=== PATIENT | male | born 1955 | race Caucasian/White ===

== ENCOUNTER 2017-02-04 23:50 | Inpatient (IN) | payer OTHER ==
[~2017-02-04] VITALS: Ht 180.3 cm; Wt 80.5 kg
--- NOTE | ~2017-02-04 | 2DMMODE ---
[facility] [address] [place] [address] 2 D/M-MODE ECHOCARDIOGRAM Name: HOODWM Room #: 204-P [facility] IN .R.#: [id number] Admission: 02/05/17 Attend Phys: Yanet River Discharge: Date of : 59 Date of Service: 02/05/17 1511 Report #: [id number] THIS REPORT FOR: //name// APPROVED REPORT Study performed: 02/05/2017 13:59:52 EXAM: Comprehensive 2D, Doppler, and color-flow Echocardiogram Patient Location: Bedside Room #: 204 Status: routine BSA: 2.00 HR: 79 bpm BP: 131/91 mmHg Rhythm: NSR Other Information Study Quality: Adequate Indications Chest Pain Hx: CAD, stent, HTN, HPL, Pre-OP possible CABG 2D Dimensions RVDd: 37.46 mm LVEF(%): 49.36 (>50%) IVSd: 11.88 (7-11mm) LVOT Diam: 23.42 (18-24mm) LVDd: 38.68 mm PWd: 12.46 (7-11mm) Ascending Ao: 37.96 (22-36mm) LVDs: 29.19 (25-40mm) Aortic Root: 39.21 mm IVC: 11.00 mm Delvalle's LVEF: 49.36 % Volumes Left Atrial Volume (Systole) Single Plane 4CH: 39.54 mL Single Plane 2CH: 31.74 mL LA ESV Index: 20.00 mL/m2 Aortic Valve AoV Peak Quincy.: 0.90 m/s AO Peak Gr.: 3.26 mmHg LVOT Max P.17 mmHg LVOT Max V: 0.74 m/s MEGHAN Vmax: 3.51 cm2 Mitral Valve E/A Ratio: 0.8 [facility] [address] 2 D/M-MODE ECHOCARDIOGRAM Name: WM HOOD Room #: 204-P [facility] IN M.R.#: [id number] Admission: 02/05/17 Attend Phys: Yanet River Discharge: Date of : 59 Date of Service: 02/05/17 1511 Report #: [id number] MV Decel. Time: 175.61 ms MV E Max Quincy.: 0.57 m/s MV A Quincy.: 0.71 m/s MV PHT: 50.93 ms IVRT: 50.75 ms Pulmonary Vein P Vein S: 0.38 m/s P Vein A: 0.39 m/s P Vein D: 0.30 m/s P Vein A Dur.: 73.8 msec P Vein S/D Ratio: 1.27 Tricuspid Valve TR Peak Quincy.: 2.77 m/s RAP Estimate: 5.00 mmHg TR Peak Gr.: 30.77 mmHg PA Pressure: 36.00 mmHg Left Ventricle Left ventricle is grossly normal size. Mild concentric left ventricular hypertrophy. Left ventricular systolic function is normal. LVEF is 55-60%. Grade I - abnormal relaxation pattern. Right Ventricle The right ventricle is normal size. The right ventricular systolic function is normal. Atria The left atrium size is normal. The right atrium size is normal. Aortic Valve The aortic valve is normal in structure. No aortic regurgitation is present. There is no aortic valvular stenosis. Mitral Valve The mitral valve is normal in structure. There is no mitral valve regurgitation noted. No evidence of mitral valve stenosis. Tricuspid Valve The tricuspid valve is normal in structure. There is trace tricuspid regurgitation. The right atrial pressure is estimated at 5 mmHg. There is mild pulmonary hypertension estimated PAP 36mmHg. Pulmonic Valve The pulmonary valve is normal in structure. There is no pulmonic valvular regurgitation. [facility] [address] [place] [address] 2 D/M-MODE ECHOCARDIOGRAM Name: WM HOOD Room #: 204-P [facility] IN [facility].#: [id number] Admission: 02/05/17 Attend Phys: Yanet River Discharge: Date of : 59 Date of Service: 02/05/17 1511 Report #: [id number] Great Vessels Aortic root is mildly dilated. IVC is normal in size and collapses >50% with inspiration. Pericardium There is no pericardial effusion. <Conclusion> Left ventricle is grossly normal size. Mild concentric left ventricular hypertrophy. Left ventricular systolic function is normal. The right ventricle is normal size. The aortic valve is normal in structure. There is no mitral valve regurgitation noted. There is trace tricuspid regurgitation. The right atrial pressure is estimated at 5 mmHg. There is mild pulmonary hypertension estimated PAP 36mmHg. <ELECTRONICALLY SIGNED> By: Chas Alvarado MD 02/05/17 [phone] Chas Alvarado MD /INF
--- NOTE | ~2017-02-04 | CATHLAB ---
[facility] [address] [place] [address] INVASIVE PROCEDURE REPORT Name: WM HOOD Room #: 204-P ADM IN .R.#: [id number] Admission: 02/05/17 Attend Phys: Yanet River Discharge: Date of : 59 Date of Service: 02/05/17 1358 Report #: [id number] THIS REPORT FOR: //name// APPROVED REPORT Patient Details Patient Status: In-Patient Room #: The patient is a 61 year-old male Event Personnel Chas Alvarado Line Assembler, Paul Mario RN, Prince Carey Monitor, Savannah Vivar Monitor, Shirley Redd Scrub Procedures Performed Art Access - R femoral artery* 53037 Initial Mod Sed Same Phys/QHP Gr5y [id number] Left Heart Cath w/or w/o Coronaries [id number] [facility] Hemostasis with Manual pressure Indication Unstable angina Risk Factors Hypercholesterolemia, Coronary Artery DiseaseHypertension, Tobacco History () Previous Procedures/Diagnoses Previous PCI Procedure Narrative The patient was brought urgently to the Cardiac Catheterization Laboratory and was prepped and draped in a sterile manner. The Right Groin^ was infiltrated with 1% Lidocaine subcutaneous anesthesia. A PINNACLE 4FR Sheath #[id number] sheath was inserted into the RFA^. Coronary angiography was performed using coronary diagnostic catheters. The right coronary system was accessed and visualized with a JR 4 catheter. The left coronary system was accessed and visualized with a JL 4 catheter. The left ventricle was accessed and visualized with a Pigtail catheter. Left ventricular/Aortic Valve gradient assessed via catheter pullback. Left ventriculogram was performed in 30 degree projection. Hemostasis was obtained with manual pressure following sheath removal without any complications. The patient tolerated the procedure well and there were no complications associated with the procedure. There was no hematoma. [facility] [address] [place] [address] INVASIVE PROCEDURE REPORT Name: HOODWM Room #: 204-P [facility] IN M.R.#: [id number] Admission: 02/05/17 Attend Phys: Yanet River Discharge: Date of : 59 Date of Service: 02/05/17 1358 Report #: [id number] Intraoperative Conscious Sedation Sedation start time: 12:14 Case end Time: 12:31 Fentanyl 50.0 mcg Versed 1.0 mg Fluoro Time: 2.16 minutes Dose: DAP 3761.20 cGycm2 520 mGy Contrast Type and Amount: Omnipaque 135 ml Coronary Angiography The patient's coronary anatomy is right dominant. Diagnostic Cath Left Main Large-caliber vessel with a 60% stenosis in the distal segment, just before the bifurcation. LAD Moderate disease at the ostium. 50-60% stenosis in the proximal segment. Diagonal 1 No flow-limiting lesions. OM1 Moderate size caliber vessel, 70% stenosis in the proximal segment. Right Coronary Dominant vessel with a severe, eccentric stenosis at the proximal segment, 70%. R PDA Mild disease at the ostium. Left Ventriculography The left ventricle is normal in size with normal contractility. The left ventricular ejection fraction is estimated to be 55-60%. Hemodynamics The aortic pressure is 140/97 mmHg with a mean of 109 mmHg. The left ventricular pressure is 129/8 mmHg with a mean of mmHg. The left ventricular end diastolic pressure is 20 mmHg. Conclusion 1. Severe left main and multivessel disease. 2. Normal LV systolic function. 3. Recommend CV surgery consultation. Recommendations CABG <ELECTRONICALLY SIGNED> By: Chas Alvarado MD 02/05/17 1358 [id number] [id number] Chas Alvarado MD /INF
--- NOTE | ~2017-02-04 | EKG ---
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1955 Requested By: Bushra Yung Order Number: [id number] MD: Marquise Booker Measurements Intervals [place] Rate: 117 P: 68 [place]: 157 QRS: 62 QRSD: 76 T: 34 QT: 296 QTc: 413 Interpretive Statements Sinus tachycardia Otherwise no significant abnormality Compared to ECG 06/20/2007 12:14:49 Sinus tachycardia is now present Electronically Signed On 02-05-2017 8:28:18 CDT by Marquise Booker [email or web address] <ELECTRONICALLY SIGNED> By: Marquise Booker MD, [facility] 02/05/17 0828 0004 [id number] Marquise Booker MD, FAC /EPI
[~2017-02-04 23:50] MED LIST: CRUTCHES MISCELL; CYMBALTA; IBUPROFEN 800800 M1 PO; KEFLEX250 MG PO; LOPRESSOR; LORTAB 5 MG/5001 TA1 PO; NORCO 5-325 TA1 EACH PO; PERCOCET 5-3251 EACH PO; SIMVASTATIN10 MG PO
[2017-02-04 23:53] VITALS: BP 189/137
[2017-02-05 00:18] LABS: ABSOLUTE NEUTROPHILS 9.5 thou/uL (1.4-8.2); BASOPHILS 0.6 % (0.0-2.0); HEMATOCRIT 51.3 % (42.0-52.0); HEMOGLOBIN 17.9 gm/dL (14.0-18.0); LYMPHOCYTES 19.5 % (24.0-44.0); MCH 32.5 pg (26.0-34.0); MCHC 34.9 g/dL (28.0-37.0); MCV 93.1 fL (80.0-100.0); MONOCYTES 8.2 % (1.0-8.0); PLATELET COUNT 303 thou/uL (150-400); POLYS 69.7 % (36.0-66.0); RBC 5.51 mil/uL (4.50-6.00); RDW 13.3 % (10.5-14.5); WBC 13.7 thou/uL (4.0-11.0)
[2017-02-05 00:19] LABS: MANUAL DIFF NO
[2017-02-05 00:22] LABS: ANION GAP 12 mmol/L (7-16); BUN 17 mg/dL (7-18); CALCIUM 9.7 mg/dL (8.5-10.1); CHLORIDE 101 mmol/L (98-107); CO2 25 mmol/L (21-32); CREATININE 0.9 mg/dL (0.7-1.3); GLUCOSE 118 mg/dL (74-106); POTASSIUM 4.5 mmol/L (3.5-5.1); SODIUM 138 mmol/L (136-145)
[2017-02-05 00:30] LABS: APTT 29.7 Seconds (24.5-32.8); PROTIME 9.6 Seconds (9.3-11.4)
[2017-02-05 00:31] LABS: TROPONIN-I < 0.04 ng/mL (<0.04-0.07)
[2017-02-05 01:53] VITALS: BP 138/94
[2017-02-05 02:00] VITALS: BP 148/101
[2017-02-05 04:15] VITALS: BP 144/98
[2017-02-05 04:25] LABS: AMP/METHAMP Negative (Negative); BARBITURATES Negative (Negative); BENZODIAZEPINES Negative (Negative); COCAINE Negative (Negative); METHADONE Negative (Negative); OPIATES POSITIVE (Negative); PCP Negative (Negative); THC Negative (Negative)
[2017-02-05 07:20] LABS: CHOLESTEROL 232 mg/dL (<200); HDL CHOLESTEROL 54 mg/dL (>40); LDL CHOLESTEROL 127 mg/dL (<100); TC:HDL 4.3 Ratio (Not establshd); TRIGLYCERIDE 257 mg/dL (<150); TROPONIN-I < 0.04 ng/mL (<0.04-0.07); VLDL 51 mg/dL (<40)
[2017-02-05 07:50] VITALS: BP 131/91
[2017-02-05 15:40] VITALS: BP 150/90
[2017-02-05 16:02] VITALS: BP 131/91
== END 2017-02-05 20:45 | disposition left against medical advice (07) | DRG 287 ==
LOC: ER 23:50 → EROBS 02-05 00:55 → 2N 02-05 01:39
PROVIDERS: Emergency Medicine; Nurse Practitioner Family
PROC: B2111ZZ Fluoroscopy of Multiple Coronary Arteries using Low Osmolar Contrast (ICD-10-PCS; principal; 2017-02-05)
PROC: B2151ZZ Fluoroscopy of Left Heart using Low Osmolar Contrast (ICD-10-PCS; principal; 2017-02-05)
PROC: 4A023N7 Measurement of Cardiac Sampling and Pressure, Left Heart, Percutaneous Approach (ICD-10-PCS; principal; 2017-02-05)
DX: I25.110 Atherosclerotic heart disease of native coronary artery with unstable angina pectoris (principal); I24.9 Acute ischemic heart disease, unspecified; I16.1 Hypertensive emergency; I10 Essential (primary) hypertension; F32.9 Major depressive disorder, single episode, unspecified; E78.00 Pure hypercholesterolemia, unspecified; E78.5 Hyperlipidemia, unspecified; F17.210 Nicotine dependence, cigarettes, uncomplicated; E03.9 Hypothyroidism, unspecified; T43.625A Adverse effect of amphetamines, initial encounter; Z95.5 Presence of coronary angioplasty implant and graft; Z91.14 Patient's other noncompliance with medication regimen; Z82.49 Family history of ischemic heart disease and other diseases of the circulatory system; Z79.82 Long term (current) use of aspirin; Z79.899 Other long term (current) drug therapy
CPT/HCPCS: 10081

== ENCOUNTER 2020-12-22 12:39 | Inpatient (IN) | payer OTHER ==
[~2020-12-22] VITALS: Ht 177.8 cm; Wt 78.0 kg
[2020-12-22 12:43] VITALS: BP 115/80
[2020-12-22] MEDS ORDERED: NOHOMEMEDICATIONS (12:57)
[2020-12-22 13:17] LABS: ABSOLUTE NEUTROPHILS 5.2 thou/uL (1.4-8.2); BASOPHILS 0.2 % (0.0-2.0); HEMATOCRIT 46.4 % (42.0-52.0); HEMOGLOBIN 16.1 gm/dL (14.0-18.0); MCHC 34.6 g/dL (28.0-37.0); MCV 89.7 fL (80.0-100.0); MONOCYTES 14.2 % (1.0-8.0); PLATELET COUNT 236 thou/uL (150-400); POLYS 76.6 % (36.0-66.0); RBC 5.18 mil/uL (4.50-6.00); RDW 13.4 % (10.5-14.5); WBC 6.8 thou/uL (4.0-11.0)
[2020-12-22 13:25] LABS: ANION GAP 14 mmol/L (7-16); BUN 41 mg/dL (7-18); CALCIUM 8.3 mg/dL (8.5-10.1); CHLORIDE 101 mmol/L (98-107); CO2 18 mmol/L (21-32); CREATININE 1.5 mg/dL (0.7-1.3); GLUCOSE 101 mg/dL (74-106); POTASSIUM 4.2 mmol/L (3.5-5.1); SODIUM 133 mmol/L (136-145)
[2020-12-22 13:34] LABS: ALBUMIN 2.3 g/dL (3.4-5.0); SGPT 40 U/L (16-63); TOTAL BILIRUBIN 0.6 mg/dL (0.2-1.0); TOTAL PROTEIN 6.6 g/dL (6.4-8.2); TROPONIN-I <0.06 ng/mL (<0.06)
[2020-12-22 13:54] LABS: BE(vivo) -4.9 mmol/L (-2 to +3); HCO3 17.8 mmol/L (22.0-26.0); PCO2 VENOUS 27.8 mmHg (41.0-51.0); PO2 VENOUS 39.8 mmHg (35.0-45.0)
[2020-12-22 14:13] LABS: SGOT 72 U/L (15-37)
--- NOTE | 2020-12-22 17:32 | NUR ---
65 year old male presenting to the ED with the complaints of Shortness of Air. Pt complains of 7 days of myalgias, subjective fever, nonproductive cough, SOB, and diarrhea. Symptoms worsened today. Pt says he used to smoke meth but has not in the past few weeks. Noted in ED Covid positive per ID NOW testing. Currently patient on 4 liter per NC and pulmonology has been consulted. Per ED triage assessment reports no vaccination. Per ED general assessment noted that patient is A&O times 4. Once medical team has assessed treatment plan CM will assist with discharge needs as needed.
[2020-12-22 19:52] VITALS: BP 120/80
--- NOTE | 2020-12-22 19:53 | NUR ---
ATTEMPTED TO CALL REPORT AT THIS TIME
--- NOTE | 2020-12-22 20:13 | NUR ---
SECOND ATTEMPT MADE TO CALL REPORT
[2020-12-22 20:23] VITALS: BP 106/75
[2020-12-22 21:12] VITALS: BP 120/80
[2020-12-23 02:50] LABS: ABSOLUTE NEUTROPHILS 2.3 thou/uL (1.4-8.2); BASOPHILS 0.5 % (0.0-2.0); HEMATOCRIT 42.6 % (42.0-52.0); HEMOGLOBIN 15.3 gm/dL (14.0-18.0); LYMPHOCYTES 10.5 % (24.0-44.0); MCH 31.5 pg (26.0-34.0); MCHC 35.9 g/dL (28.0-37.0); MCV 87.9 fL (80.0-100.0); MONOCYTES 9.2 % (1.0-8.0); PLATELET COUNT 254 thou/uL (150-400); POLYS 79.8 % (36.0-66.0); RBC 4.85 mil/uL (4.50-6.00); RDW 13.5 % (10.5-14.5); WBC 2.9 thou/uL (4.0-11.0)
[2020-12-23 03:05] LABS: D-DIMER 0.94 ug/mLFEU (0.19-0.50); INR 1.07; PROTIME 11.6 Seconds (10.5-12.1)
[2020-12-23 03:12] LABS: ALBUMIN 2.2 g/dL (3.4-5.0); CREATININE 1.3 mg/dL (0.7-1.3); POTASSIUM 3.9 mmol/L (3.5-5.1); TOTAL BILIRUBIN 0.4 mg/dL (0.2-1.0)
--- NOTE | 2020-12-23 03:32 | NUR ---
PT ARRIVED FROM ER VIA WHEELCHAIR. PT A/OX4, AND UP WITH SBA. COVID+, REMDESIVIR STARTED AND IVF GTT. ISOLATION PRECAUTIONS IN PLACE.
[2020-12-23 03:44] VITALS: BP 102/69
[2020-12-23 06:37] LABS: ALBUMIN 2.3 g/dL (3.4-5.0); CALCIUM 8.2 mg/dL (8.5-10.1); CREATININE 1.3 mg/dL (0.7-1.3); DIRECT BILIRUBIN 0.2 mg/dL (<0.1-0.2); PHOSPHORUS 4.4 mg/dL (2.5-4.9); POTASSIUM 4.1 mmol/L (3.5-5.1); TOTAL BILIRUBIN 0.5 mg/dL (0.2-1.0); TOTAL PROTEIN 6.4 g/dL (6.4-8.2)
[2020-12-23 07:34] VITALS: BP 113/78
--- NOTE | 2020-12-23 09:45 | EKG ---
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 : 1955 Requested By: Sharon Honeycutt Order Number: [id number] MD: Marquise Booker Measurements Intervals [place] Rate: 104 P: 74 MT: 129 QRS: 61 QRSD: 85 T: 50 QT: 327 QTc: 430 Interpretive Statements Sinus tachycardia Otherwise no significant abnormality Compared to ECG 02/05/2017 00:04:49 No significant changes Electronically Signed On 12-23-2020 9:45:06 CDT by Marquise Booker [email or web address] <ELECTRONICALLY SIGNED> By: Marquise Booker MD, [facility] 12/23/20 0945 1252 [id number] Marquise Booker MD, FACC /EPI
[2020-12-23 11:29] LABS: URINE BILIRUBIN NEGATIVE (Negative); URINE BLOOD NEGATIVE (Negative); URINE CLARITY CLEAR; URINE COLOR YELLOW; URINE GLUCOSE-RANDOM* NEGATIVE (Negative); URINE KETONES TRACE (Negative); URINE LEUKOCYTES-REFLEX NEGATIVE (Negative); URINE NITRITE-REFLEX NEGATIVE (Negative); URINE PROTEIN (DIPSTICK) NEGATIVE (Negative); URINE SPECIFIC GRAVITY 1.025 (1.005-1.035)
[2020-12-23 11:38] LABS: AMP/METHAMP Negative (Negative); BARBITURATES Negative (Negative); BENZODIAZEPINES Negative (Negative); COCAINE Negative (Negative); METHADONE Negative (Negative); OPIATES Negative (Negative); PCP Negative (Negative)
--- NOTE | 2020-12-23 16:01 | NUR ---
Patient admits with SOA. Patient Covid positive and has not had vaccine. Patient not answering phone in room. Sp with unit who reports patient is "refusing all calls." casemgt following.
[2020-12-23 16:53] VITALS: BP 124/84
--- NOTE | 2020-12-23 16:57 | NUR ---
PATIENT HAS REPEATEDLY REFUSED TO ALLOW THIS RN TO RESEARCH LABORATORY MANAGER PATIENT'S IV FLUIDS AND DOES NOT WANT ANY PHONE CALLS ATT. PATIENT REPORTS "I JUST WANT TO SLEEP, LEAVE ME ALONE." PATIENT HAS BEEN SLEEPING ALL SHIFT EXCEPT FOR THERAPY AND MEDICATION. PATIENT ALSO REQUESTED TO SKIP LUNCH SAYING "JUST LET ME SLEEP."
[2020-12-23 19:54] VITALS: BP 129/84
[2020-12-24 01:06] LABS: HEP B SURFACE Ab(ANTI-HBS Non Reactive (()); HEPATITIS C VIRUS AB <0.1 (0.0-0.9)
[2020-12-24 03:06] LABS: HIV ANTIBODY Non Reactive (Non Reactive)
[2020-12-24 05:54] VITALS: BP 110/77
--- NOTE | 2020-12-24 06:06 | NUR ---
PROGRESS PT MOSTLY COOPERATIVE, GETTING ANGRY THE IV PUMP KEEPS ALARMING AND EVERY ATTEMPT TO KEEP FLUIDS GOING AND IV FROM ALARMING SUCH FREQUENT ROUNDING, WRAPPING ARM DECREASING RATE PT VERY IRATE THIS AM AND INSISTED THAT I TURN IT OFF SO HE COULD SLEEP. ORDER TO DC TELEMETRY OBTAINED PT RUNNING SR IN THE 80'S ELECTRODES WOULD NOT STAY ON WITH PT'S CHEST HAIR AND HIM BEING RESTLESS IN BED. VOIDING QS PER TOLIET. VSS ON ROOM AIR LUNGS WITH RHONCHI NOTED IN UPPER LOBES AND DIMINISHED IN THE BASES. REMDESIVIR ADMINISTERED ORDERED WITH FLUSH AFTER PER PROTOCOL. IVF'S INFUSED AT A RATE OF 50CC/HR UNTIL 5 AM WHEN PT DEMANDED I SHUT OFF THE ALARM BEFORE HE PULLED HIS IV.
[2020-12-24 07:28] VITALS: BP 127/92
[2020-12-24 09:10] LABS: HEMATOCRIT 41.6 % (42.0-52.0); HEMOGLOBIN 14.4 gm/dL (14.0-18.0); MCH 30.9 pg (26.0-34.0); MCHC 34.5 g/dL (28.0-37.0); MCV 89.4 fL (80.0-100.0); RBC 4.66 mil/uL (4.50-6.00); RDW 13.6 % (10.5-14.5); WBC 8.1 thou/uL (4.0-11.0)
[2020-12-24 09:24] LABS: PLATELET COUNT 379 thou/uL (150-400)
[2020-12-24 09:31] LABS: ALBUMIN 2.2 g/dL (3.4-5.0); CALCIUM 8.1 mg/dL (8.5-10.1); CREATININE 1.1 mg/dL (0.7-1.3); DIRECT BILIRUBIN 0.1 mg/dL (<0.1-0.2); MAGNESIUM 2.2 mg/dL (1.8-2.4); PHOSPHORUS 2.7 mg/dL (2.6-4.7); TOTAL BILIRUBIN 0.4 mg/dL (0.2-1.0); TOTAL PROTEIN 5.9 g/dL (6.4-8.2)
[2020-12-24 09:58] LABS: ABSOLUTE NEUTROPHILS 6.8 thou/uL (1.4-8.2); PLATELET ESTIMATE NORMAL
[2020-12-24 15:33] VITALS: BP 118/77
--- NOTE | 2020-12-24 16:53 | NUR ---
PT NOT VERY COMPLIANT, DOES NOT WANT TO BE HOOKED UP TO IV, STATES IT IS AN "ORGAN, IT NEVER SHUTS OFF." EDUCATED PT ON HOW LINE GETS OVERPRESSURE WHEN HE BENDS ARM. ALSO STATES NO ONE IS TELLING HIM ANYTHING ABOUT HIS CONDITION. I WAS IN THE ROOM WITH DR. ROGERS HE EXPLAINED EVERYTHING TO HIM. VERY IMPULSIVE AND FIDGITS. PT NOW ON ROOM AIR.
[2020-12-24 19:40] VITALS: BP 138/86
[2020-12-25 05:50] VITALS: BP 126/77
[2020-12-25 06:28] LABS: ALBUMIN 2.3 g/dL (3.4-5.0); CALCIUM 7.8 mg/dL (8.5-10.1); DIRECT BILIRUBIN 0.1 mg/dL (<0.1-0.2); PHOSPHORUS 2.5 mg/dL (2.5-4.9); POTASSIUM 4.4 mmol/L (3.5-5.1); TOTAL BILIRUBIN 0.4 mg/dL (0.2-1.0)
[2020-12-25 07:17] VITALS: BP 94/67
--- NOTE | 2020-12-25 07:47 | NUR ---
PT MAKING SLOW PROGRESS TOWARESD GOALS. LUNGS DIMINISHED THROUGHOUT. O2 SATS MID-LOW 90'S. PT DENIED NEED FOR OXYGEN. PT DEMANDING TO BE LEFT ALONE AND TO BE TOLD HOW LONG HE HAS TO STAY HERE. "NO ONE IS TELLING ME HOW LONG I HAVE TO STAY HERE." ENCOURAGED TO ASK THE PHYSICIAN.
[2020-12-25 15:18] VITALS: BP 106/78
--- NOTE | 2020-12-25 18:20 | NUR ---
ASSUMED PATIENT CARE AT 0700. A/0 X4. ON RA. UP AD BUD. PROGRESSING TOWARDS POC GOALS.
[2020-12-25 19:37] VITALS: BP 153/91
--- NOTE | 2020-12-26 04:05 | NUR ---
ASSUME CARE 1900. PT/VITALS STABLE. DINTEERMITTENT GENERALIZED PAIN WITH RELIEF FROM TYLENOL. GOOD TOLERANCE TO ACTIVITY. A/O X 4. ASSESSMETN CHARTED. PROGRESSING WELL TOWARDS POC. PLAN IS TO CONTINUE WITH REMDESEVIER THERAPY AND MONITOR RESPIRATORY FUNCTION. WILL CONTINUE TO MONITOR AND FOLLOW WITH POC
[2020-12-26 04:09] VITALS: BP 143/93
[2020-12-26 04:57] LABS: ALBUMIN 2.3 g/dL (3.4-5.0); CALCIUM 7.7 mg/dL (8.5-10.1); CREATININE 0.9 mg/dL (0.7-1.3); DIRECT BILIRUBIN 0.1 mg/dL (<0.1-0.2); POTASSIUM 3.6 mmol/L (3.5-5.1); TOTAL BILIRUBIN 0.6 mg/dL (0.2-1.0)
[2020-12-26 07:34] VITALS: BP 134/87
[2020-12-26] MEDS ORDERED: ACEROLA C500 MG PO (14:33)
[2020-12-26] MEDS ORDERED: CEFUROXIME500 MG PO (14:33)
[2020-12-26] MEDS ORDERED: ZINC SULFATE50 MG PO (14:33)
[2020-12-26] MEDS ORDERED: PRENATAL PO (14:33)
[2020-12-26] MEDS ORDERED: ZITHROMAX500 MG PO (14:33)
[2020-12-26] MEDS ORDERED: MUCINEX600 MG PO (14:33)
[2020-12-26] MEDS ORDERED: PREDNISONE 20 M20 M1 PO (14:33)
[2020-12-26] MEDS ORDERED: ACETAMINOPHEN325 M1 PO (14:33)
[2020-12-26 14:57] VITALS: BP 134/87
--- NOTE | 2020-12-26 15:44 | NUR ---
DISCHARGE NOTE: SW reviewed chart and spoke with nursing and attending physician. Pt remains in Enhanced Isolation due to COVID. Pt is afebrile and not requiring O2. Pt is medically stable for discharge home today. SW placed multiple calls to pt's room today to discuss discharge. No answer. SW spoke with nursing and provided Health Resource Guide/Safety Net clinic list and prescription discount card to give to pt upon discharge. Pt does not have health insurance. [facility] to screen pt for [place]-Medicaid and/or financial assistance. Nursing to review discharge ppwk and provide pt with new prescriptions. No SW needs identified at this time, but is available to assist should needs arise.
--- NOTE | 2020-12-26 15:46 | NUR ---
ASSUMED PATIENT CARE AT 0700. A/O X4. UP AD BUD. TOLERATED ON RA. PROGRESSING TOWARDS POC GOALS. DC TO HOME NOW.
[2020-12-26 23:06] LABS: SYPHILIS AB Non Reactive (Non Reactive)
== END 2020-12-26 15:40 | disposition home or self-care (01) | DRG 871 ==
LOC: ER 12:39 → EROBS 14:53 → 3W 20:23
PROVIDERS: Emergency Medicine; Specialist; ADMIT Internal Medicine; ATTEND Internal Medicine
PROC: XW033E5 Introduction of Remdesivir Anti-infective into Peripheral Vein, Percutaneous Approach, New Technology Group 5 (ICD-10-PCS; principal; 2020-12-23)
DX: A41.89 Other specified sepsis (principal); U07.1 COVID-19; J12.82 Pneumonia due to coronavirus disease 2019; J96.01 Acute respiratory failure with hypoxia; G92 Toxic encephalopathy; E43 Unspecified severe protein-calorie malnutrition; N17.9 Acute kidney failure, unspecified; I10 Essential (primary) hypertension; F32.9 Major depressive disorder, single episode, unspecified; E78.00 Pure hypercholesterolemia, unspecified; E86.0 Dehydration; F17.210 Nicotine dependence, cigarettes, uncomplicated; R73.9 Hyperglycemia, unspecified; F19.10 Other psychoactive substance abuse, uncomplicated; R65.20 Severe sepsis without septic shock; E78.5 Hyperlipidemia, unspecified; I25.10 Atherosclerotic heart disease of native coronary artery without angina pectoris; Z72.89 Other problems related to lifestyle; Z95.5 Presence of coronary angioplasty implant and graft; Z91.14 Patient's other noncompliance with medication regimen; Z68.24 Body mass index [BMI] 24.0-24.9, adult
CPT/HCPCS: 10779; 10879

== ENCOUNTER 2020-12-28 15:47 | Inpatient (IN) | payer OTHER ==
[~2020-12-28] VITALS: Ht 177.8 cm; Wt 69.9 kg
[~2020-12-28 15:47] MED LIST changes: +ACEROLA C500 MG PO; +ACETAMINOPHEN325 M1 PO; +CEFUROXIME500 MG PO; +MUCINEX600 MG PO; +NOHOMEMEDICATIONS; +PREDNISONE 20 M20 M1 PO; +PRENATAL PO; +ZINC SULFATE50 MG PO; +ZITHROMAX500 MG PO
[2020-12-28 15:52] VITALS: BP 153/102
--- NOTE | 2020-12-28 15:54 | NUR ---
CHRISTIE [phone]
[2020-12-28 16:19] LABS: ABSOLUTE NEUTROPHILS 8.8 thou/uL (1.4-8.2); BASOPHILS 0.3 % (0.0-2.0); EOSINOPHILS 0.1 % (0.0-3.0); LYMPHOCYTES 5.1 % (24.0-44.0); MCH 31.1 pg (26.0-34.0); MCV 88.9 fL (80.0-100.0); MONOCYTES 8.8 % (1.0-8.0); PLATELET COUNT 328 thou/uL (150-400); POLYS 85.7 % (36.0-66.0); RBC 4.83 mil/uL (4.50-6.00); RDW 13.3 % (10.5-14.5); WBC 10.3 thou/uL (4.0-11.0)
[2020-12-28 16:27] LABS: ANION GAP 9 mmol/L (7-16); BUN 18 mg/dL (7-18); CALCIUM 7.9 mg/dL (8.5-10.1); CHLORIDE 105 mmol/L (98-107); CO2 23 mmol/L (21-32); CREATININE 0.9 mg/dL (0.7-1.3); GLUCOSE 152 mg/dL (74-106); SODIUM 137 mmol/L (136-145)
[2020-12-28 16:38] LABS: ALBUMIN 2.3 g/dL (3.4-5.0); SGOT 29 U/L (15-37); SGPT 58 U/L (16-63); TOTAL PROTEIN 5.8 g/dL (6.4-8.2); TROPONIN-I <0.06 ng/mL (<0.06)
[2020-12-28 21:49] LABS: URINE BILIRUBIN NEGATIVE (Negative); URINE BLOOD 2+ (Negative); URINE CLARITY CLEAR; URINE COLOR YELLOW; URINE GLUCOSE-RANDOM* NEGATIVE (Negative); URINE KETONES 1+ (Negative); URINE LEUKOCYTES-REFLEX NEGATIVE (Negative); URINE NITRITE-REFLEX NEGATIVE (Negative); URINE PROTEIN (DIPSTICK) NEGATIVE (Negative); URINE SPECIFIC GRAVITY 1.015 (1.005-1.035)
[2020-12-28 21:57] LABS: AMP/METHAMP Negative (Negative); BARBITURATES Negative (Negative); BENZODIAZEPINES Negative (Negative); COCAINE Negative (Negative); METHADONE Negative (Negative); OPIATES Negative (Negative); PCP Negative (Negative)
[2020-12-28 21:58] LABS: BACTERIA-REFLEX 1-9 Few /HPF (None Seen); CASTS None Seen /LPF (None Seen); CRYSTALS None Seen /LPF (None Seen); MUCUS 0-3 Light strn/LPF (None Seen); SQUAMOUS 0-3 Few /LPF (0-3); URINE WBC-REFLEX 0-5 Rare /HPF (0-5)
--- NOTE | 2020-12-28 23:17 | NUR ---
ATTEMPT TO CONSULT/TRANSFER PATIENT DUE TO CTA RESULTS, HOWEVER THERE WERE NO ACCEPTING FACILITIES. THIS NURSE CONTACTED [facility] TRANSFER TEAM, [facility] TRANSFER, AND [facility] TRANSFER TEAM, ALL WITHOUT BED AVAILABILITY. DR DC NOTIFIED, ORDERS RECEIVED.
[2020-12-28 23:59] VITALS: BP 130/88
[2020-12-29] VITALS (7 sets, daily range): BP systolic 130–155; BP diastolic 76–107
[2020-12-29 06:05] LABS: HEMOGLOBIN 16.1 gm/dL (14.0-18.0); MCH 31.4 pg (26.0-34.0); MCV 89.5 fL (80.0-100.0); RBC 5.14 mil/uL (4.50-6.00); RDW 13.2 % (10.5-14.5)
[2020-12-29 06:19] LABS: CALCIUM 8.1 mg/dL (8.5-10.1); CREATININE 0.9 mg/dL (0.7-1.3); POTASSIUM 3.7 mmol/L (3.5-5.1)
[2020-12-29 06:24] LABS: ALBUMIN 2.4 g/dL (3.4-5.0); DIRECT BILIRUBIN 0.3 mg/dL (<0.1-0.2); PHOSPHORUS 3.4 mg/dL (2.6-4.7); TOTAL BILIRUBIN 0.9 mg/dL (0.2-1.0); TOTAL PROTEIN 6.4 g/dL (6.4-8.2)
[2020-12-29 06:25] LABS: CHOLESTEROL 103 mg/dL (<200); HDL CHOLESTEROL 28 mg/dL (>40); LDL CHOLESTEROL 57 mg/dL (<100); TC:HDL 3.7 Ratio (Not establshd); TRIGLYCERIDE 93 mg/dL (<150); VLDL 19 mg/dL (<40)
[2020-12-29 06:32] LABS: SERUM ASSESSMENT Clear
[2020-12-29 12:53] LABS: APTT 30.4 Seconds (24.5-32.8); INR 1.14; PROTIME 12.4 Seconds (10.5-12.1)
--- NOTE | 2020-12-29 19:21 | NUR ---
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
[2020-12-30] VITALS: BP 140/94
[2020-12-30 00:06] LABS: GLYCOHEMOGLOBIN (HGB A1C) 6.3 % (4.8-5.6)
[2020-12-30 02:44] LABS: ABSOLUTE NEUTROPHILS 6.1 thou/uL (1.4-8.2); BASOPHILS 0.1 % (0.0-2.0); LYMPHOCYTES 4.9 % (24.0-44.0); MCH 31.6 pg (26.0-34.0); MCHC 32.5 g/dL (28.0-37.0); MONOCYTES 9.3 % (1.0-8.0); POLYS 85.7 % (36.0-66.0); RDW 14.1 % (10.5-14.5); WBC 7.1 thou/uL (4.0-11.0)
[2020-12-30 02:58] LABS: HEMOGLOBIN 11.7 gm/dL (14.0-18.0); MCV 97.3 fL (80.0-100.0); PLATELET COUNT 242 thou/uL (150-400)
[2020-12-30 03:01] LABS: ALBUMIN 1.1 g/dL (3.4-5.0); BUN 14 mg/dL (7-18); CHLORIDE 68 mmol/L (98-107); CO2 13 mmol/L (21-32); DIRECT BILIRUBIN < 0.1 mg/dL (<0.1-0.2); MAGNESIUM 1.4 mg/dL (1.8-2.4); PHOSPHORUS 1.5 mg/dL (2.5-4.9); SGOT 14 U/L (15-37); SGPT 22 U/L (30-65)
[2020-12-30 03:15] LABS: ANION GAP 35 mmol/L (7-16); CREATININE 6.9 mg/dL (0.7-1.3)
[2020-12-30 03:16] LABS: TOTAL BILIRUBIN < 0.1 mg/dL (0.2-1.0); TOTAL PROTEIN 3.8 g/dL (6.4-8.2)
[2020-12-30 03:19] LABS: CALCIUM < 5.0 mg/dL (8.5-10.1); GLUCOSE 1395 mg/dL (74-106); POTASSIUM 2.3 mmol/L (3.5-5.1); SODIUM 116 mmol/L (136-145)
--- NOTE | 2020-12-30 03:54 | NUR ---
CRITICAL LAB CALLED BY SEGUNDO. NA 116, K+2.3, GLUCOSE 1395, CA IS LESS THAN 5. ALL PROTOCOLS FOLLOWED AND APPROPRIATE PARTIES CONTACTED.
[2020-12-30 05:41] VITALS: BP 153/82
--- NOTE | 2020-12-30 07:52 | NUR ---
progress pt alert but not completely responsive. pupils equal but sluggish to light. pt able to track better by this am. still restless. restraints in place for safety. ppn infusing at 80cc/hr, heparin drip at 12.8cc/hr ptt due at 4am awaiting results. am labs need to be redrawn as heparin and ppn infusing at time of draw. vss zhang catheter inserted 400cc output.ontinue to monitor.
[2020-12-30 08:42] VITALS: BP 136/95
[2020-12-30 10:30] LABS: HEMATOCRIT 46.7 % (42.0-52.0); MCH 30.8 pg (26.0-34.0); MCHC 34.1 g/dL (28.0-37.0); RBC 5.17 mil/uL (4.50-6.00); RDW 13.5 % (10.5-14.5); WBC 14.4 thou/uL (4.0-11.0)
[2020-12-30 10:52] LABS: PLATELET COUNT 398 thou/uL (150-400)
[2020-12-30 10:56] LABS: HEMOGLOBIN 15.9 gm/dL (14.0-18.0); MCV 90.4 fL (80.0-100.0)
[2020-12-30 11:04] LABS: ALBUMIN 2.2 g/dL (3.4-5.0); DIRECT BILIRUBIN 0.2 mg/dL (<0.1-0.2); MAGNESIUM 2.4 mg/dL (1.8-2.4); PHOSPHORUS 3.1 mg/dL (2.6-4.7); TOTAL BILIRUBIN 0.7 mg/dL (0.2-1.0); TOTAL PROTEIN 6.2 g/dL (6.4-8.2)
[2020-12-30 11:07] LABS: CREATININE 0.8 mg/dL (0.7-1.3); POTASSIUM 3.5 mmol/L (3.5-5.1)
[2020-12-30 11:08] LABS: CALCIUM 8.4 mg/dL (8.5-10.1)
--- NOTE | 2020-12-30 11:23 | NUR ---
PT CONTINUES TO BE IN RESTRAINTS TIMES TWO DAYS AND NOT APPROPRIATE FOR OT EVAL ON THIS DAY. FLUCTUATING COGNITIVE STATUS/ALERTNESS WELL. OT WILL CHECK IN AM
[2020-12-30 11:34] VITALS: BP 122/89
[2020-12-30 11:44] LABS: ABSOLUTE NEUTROPHILS 12.7 thou/uL (1.4-8.2); PLATELET ESTIMATE NORMAL
--- NOTE | 2020-12-30 16:05 | NUR ---
INITIAL ASSESSMENT: SOFIYA reviewed chart and spoke with nursing and attending physician. Pt was admitted from home due to COVID. Pt placed in Enhanced Isolation. Pt was discharged home on 12/26. Pt admitted with new CVA. Pt placed in bilateral wrist restraints due to pulling at lines. Pt is on 2L of O@. PT is on IV abx and IV steroids. Heparin gtt infusing. Pt unable to answer questions or follow commands. SOFIYA spoke with pt's dtrGinger and sister, Luisa, via phone. Long discussion regarding pt's prior level of functioning and living situation. Pt has been living in a townhouse owned by a friend. Pt has roommates who may be drug users that live with him. Pt was indpendent with ADLs. 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 Luisa states pt may be on disability, as he has a monthly income of $1500. Pt has been independent with ADLs. Unsure if pt has a PCP. Pt's family do not think he has seen a physician in many years. SOFIYA explained to both that [employer] will assist with a Medicaid application. Pt is NPO. Pt's sister will be arriving in town from [place] on Saturday. Pt does not have a DPOA in place. Pt's family are going to Face Time with pt. Pt's sister requested that Eric be taken off pt's face sheet as a contact. SOFIYA spoke with Dina in registration to have info changed to pt's sister, Luisa. No weekend discharge planned. Pt's family to discuss code status and monitor pt's progress. [facility] consulted. Therapy evals on hold at this time. SOFIYA is following to assist as needed with discharge planning.
[2020-12-30 16:57] VITALS: BP 125/88
--- NOTE | 2020-12-30 19:27 | NUR ---
RN ASSUMED PT'S CARE AT 0700-1900PM, PT STILL IS CONFUSED, PT IS IMPULSIVE AT TIME, PT CAN NOT FOLLOW MOST OF COMMANDS, PT IS ON NPO, PT REFUSED ORAL CARE , PT IS CONTINUING TO HAVE IV ABX AND TREAT COVID MEDICATIONS, PT IS ON HEPARIN IV DRIP PROTOCOL , BUT NO HEPARIN BOLUS , PT 'S PTT IS 62..6 AT 1745PM, KEEP HEPRIN 14.2ML/HR ( 19UNITS/KG/HR ), NO DOSE CHANGE, PT WILL HAVE PTT AT 2400, PT DOES NOT HAVE S/S OD BLEEDING AT DAY SHIFT, RN HAS REPORTED TO NEXT SHIFT TO KEEP EYES ON PT.
[2020-12-30 19:37] VITALS: BP 165/65
--- NOTE | 2020-12-31 00:09 | NUR ---
PT RESTLESS, FIDGETING IN BED, GROGGY, ABLE TO OPEN EYES WHEN ADDRESSED BY STAFF. IVF AND HEPARIN INTACT. BILATERAL SOFT RESTRAINTS. RAMOS TO DD. BED ALARM ON. LUNGS DIMINISHED. O2 PER NC. DUSKY SKIN TONE. DAUGHTER DID FACE TIME CALL. PT DID RESPOND TO DAUGHTER, MUMBLED SPEECH AT TIMES MOUTHING WORDS FEW CLEAR WORDS.
[2020-12-31 01:37] LABS: ABSOLUTE NEUTROPHILS 9.2 thou/uL (1.4-8.2); BASOPHILS 0.2 % (0.0-2.0); HEMATOCRIT 45.6 % (42.0-52.0); HEMOGLOBIN 15.7 gm/dL (14.0-18.0); LYMPHOCYTES 3.6 % (24.0-44.0); MCH 31.7 pg (26.0-34.0); MCHC 34.5 g/dL (28.0-37.0); MCV 91.8 fL (80.0-100.0); MONOCYTES 9.6 % (1.0-8.0); PLATELET COUNT 353 thou/uL (150-400); POLYS 86.6 % (36.0-66.0); RBC 4.96 mil/uL (4.50-6.00); RDW 13.3 % (10.5-14.5); WBC 10.6 thou/uL (4.0-11.0)
[2020-12-31 01:49] LABS: DIRECT BILIRUBIN 0.2 mg/dL (<0.1-0.2); PHOSPHORUS 3.2 mg/dL (2.6-4.7)
[2020-12-31 02:01] LABS: ALBUMIN 2.2 g/dL (3.4-5.0); CALCIUM 7.8 mg/dL (8.5-10.1); CREATININE 0.7 mg/dL (0.7-1.3); TOTAL BILIRUBIN 0.7 mg/dL (0.2-1.0); TOTAL PROTEIN 5.5 g/dL (6.4-8.2)
[2020-12-31 02:07] LABS: POTASSIUM 4.6 mmol/L (3.5-5.1)
[2020-12-31 06:05] VITALS: BP 160/82
[2020-12-31 07:51] VITALS: BP 168/84
[2020-12-31 11:38] VITALS: BP 104/73
[2020-12-31 15:19] VITALS: BP 119/77
--- NOTE | 2020-12-31 19:02 | NUR ---
RN ASSUMED PT'S CARE AT 0700AM-1900PM, PT IS CONFUSED , PT CAN NOT FOLLOW COMMANDS, PT IS IMPULSIVE AT TIME, PT IS ON BOTH WRIST RESTRANITS , PT IS ON O2 2L/MIN/NC, PT'S VS AND O2SAT ARE STABLE, PT 'S HEPARIN IV DRIP IS RUNNING 19UNITS/KG/HR PER PROTOCOL , PT WILL HAVE PTT AT 2300PM, PT DOES NOT HAVE S/S OF BLEEDING AT DAY SHIFT, RN HAS REPORTED TO NEXT SHIFT TO KEEP EYE ON PT, PT STARTS TALKING " NO " AT 3 TIMES.
[2020-12-31 19:28] VITALS: BP 132/84
--- NOTE | 2020-12-31 21:03 | NUR ---
PT RESTLESS IN BED, SQUIRMING, KICKING LEGS, TAKING OFF CLOTHES, SCDS, TELE. BILAT SOFT WRIST RESTRAINTS INTACT. RAMOS INTACT. HEPARIN AND PPN INTACT. LUNGS CL/DIMINISHED. PALE SKIN TONE. PT NOT VERBALIZING, FOLLOWING NURSE WITH HIS EYES. BED ALARM ON.
--- NOTE | 2020-12-31 22:39 | NUR ---
PT RESISITIVE TO ADL CARE AND LINEN CHANGE, GRABBING AT BARS, KICKING, PULLING OFF TELE AND GOWN, PULLING AT RAMOS. WHILE IN WRIST RESTRAINTS. PRN PROVIDED. BED BATH GIVEN, SHOWER CAP USED.
--- NOTE | 2020-12-31 22:54 | NUR ---
JULIENO ESTEBANE CHAT WITH SISTER JOSELYN THIS EVENING.
[2021-01-01 05:19] VITALS: BP 172/89
--- NOTE | 2021-01-01 06:07 | NUR ---
PT PHYSICALLY RESISTIVE TO AM LAB DRAW, KICKING LEGS, SITTING UPRIGHT, GRABBING AT ARMY SENIOR OFFICER. 3 ATTEMPTS TO DRAW LAB NOT SUCCESSFUL DUE TO PT MOVING. ARMY SENIOR OFFICER WILL TRY ON DAY SHIFT. SCHEDULED PTT AT 0600 WILL BE DONE AT THAT TIME.
--- NOTE | 2021-01-01 06:12 | NUR ---
SUHASE NOT ABLE TO COMPLETE 06 FSBS, DUE TO PT NOT HOLDING STILL AND ROLLING AROUND.
[2021-01-01 08:56] VITALS: BP 155/94
[2021-01-01 10:57] VITALS: BP 149/80
[2021-01-01 12:30] LABS: BASOPHILS 0.3 % (0.0-2.0); HEMATOCRIT 49.6 % (42.0-52.0); HEMOGLOBIN 17.2 gm/dL (14.0-18.0); MCH 31.2 pg (26.0-34.0); MCHC 34.7 g/dL (28.0-37.0); MCV 89.9 fL (80.0-100.0); MONOCYTES 13.6 % (1.0-8.0); PLATELET COUNT 361 thou/uL (150-400); POLYS 82.1 % (36.0-66.0); RBC 5.52 mil/uL (4.50-6.00); RDW 13.1 % (10.5-14.5); WBC 7.3 thou/uL (4.0-11.0)
[2021-01-01 12:40] LABS: DIRECT BILIRUBIN 0.2 mg/dL (<0.1-0.2)
[2021-01-01 12:52] LABS: ALBUMIN 2.7 g/dL (3.4-5.0); CALCIUM 8.8 mg/dL (8.5-10.1); CREATININE 0.8 mg/dL (0.7-1.3); POTASSIUM 4.5 mmol/L (3.5-5.1); TOTAL BILIRUBIN 0.9 mg/dL (0.2-1.0); TOTAL PROTEIN 6.3 g/dL (6.4-8.2)
[2021-01-01 15:35] VITALS: BP 143/89
--- NOTE | 2021-01-01 19:18 | NUR ---
RN ASSUMED PT'S CARE AT 0700-1900PM, PT IS MORE IMPULSIVE TODAY, PTREFUSED LAB TO DRAW BLOOD AT 0600AM AND 1000AM, PT IS ON BOTH WRIST RESTRAINITS, PT REFUSED ORAL CARE , PT IS CONTINUING PPN AT 80ML/HR, AND TO TREAT COVID MEDICATION, PT IS ON O2 2L/MIN/NC, PT'S VS AND BS ARE STABLE, PT'S HEPARIN IV DRIP HAS DC AT 1400PM, PT'S DOES NOT HAVE S/S OF BLEEDING AT DAY SHIFT. RN HAS REPORTED TO NEXT SHIFT TO KEEP EYE ON PT.
[2021-01-01 20:03] VITALS: BP 147/96
--- NOTE | 2021-01-01 21:18 | NUR ---
PT RESTING IN BED, EASILY AROUSED BY MOVEMENT. BILAT WRIST RESTRAINTS INTACT. PT HAS TAKEN OFF CLOTHES AND SHEETS, SCDS AND SOCKS. PPN AND IVF INTACT. REMAINS NPO. RAMOS TO DD. BED ALARM ON. DAUGHTER CALLED TO SCHEDULE FACE TIME FOR LATER IN SHIFT.
[2021-01-02 04:53] VITALS: BP 150/92
[2021-01-02 07:47] VITALS: BP 151/96
[2021-01-02 11:14] VITALS: BP 153/89
[2021-01-02 15:27] VITALS: BP 140/74
--- NOTE | 2021-01-02 17:07 | NUR ---
SOFIYA reviewed chart and spoke with nursing and attending physician. Pt remains in Enhanced Isolation due to COVID. Pt is afebrile and on 3L of O2. Pt is on IV abx and IV steroids. Pt is in restraints. PT/OT/ST evals completed today. Pureed diet with honey thickened liquids ordered. Awaiting input from N to see if pt would be a candidate. SOFIYA spoke with pt's sister, Luisa, via phone to provide update. Pt's family were able to facetime with pt over the weekend. Luisa just arrived in today. Pt's sister expressed concerns about pt's friends coming to visit pt or calling for an update. SW explained that is not allowing any visitors at this time and that she and pt's dtr, Ginger, are the only ones on the contact list. Pt's sister asked to speak with ID and hospitalist for update and prognosis. Pt is a DNR. SOFIYA reviewed therapy evals with pt's sister and discussed that is following for possible admission to in acute rehab. SOFIYA followed up with [employer] to request they reach out to pt's family for assistance with Medicaid application. SOFIYA is following to assist as needed with discharge planning.
--- NOTE | 2021-01-02 17:17 | NUR ---
RN ASSUMED PT'S CARE AT 0700AM, PT STILL IS CONFUSED ,AND PT IS IMPULSIVE AT TIME, PT IS ON BOTH WRIST RESTRAINTS, PT IS ON O2 2L/MIN/NC, PT'S VS ARE STABLE, PT IS CONTINUING TO HAVE TREAT COVID MAINETONS , ST HAS RE-ASSESSED THIS PT, PT STARTS PUREED DIET BY FEEDING HIM, PT IS TOLERATIVE THIS DIET,
[2021-01-02 19:18] VITALS: BP 153/73
--- NOTE | 2021-01-03 00:58 | NUR ---
PT RESTING IN BED. OPENS EYES TO STIMULATION. BILAT WRIST RESTRAINTS INTACT. PT CONTINUES TO GRAB AT GOWN, WIRES, RAMOS, IV TUBING; EVEN WHEN EYES ARE CLOSED. KICKING LEGS. PTS SON FACE TIME CALLED THIS EVENING. PPN CONTINUE. BED ALARM ON.
[2021-01-03 03:34] VITALS: BP 150/80
[2021-01-03 07:43] VITALS: BP 178/98
[2021-01-03 10:47] LABS: ABSOLUTE NEUTROPHILS 8.1 thou/uL (1.4-8.2); BASOPHILS 0.1 % (0.0-2.0); HEMOGLOBIN 15.7 gm/dL (14.0-18.0); LYMPHOCYTES 3.1 % (24.0-44.0); MCH 31.4 pg (26.0-34.0); MCHC 34.9 g/dL (28.0-37.0); MCV 90.1 fL (80.0-100.0); MONOCYTES 7.8 % (1.0-8.0); PLATELET COUNT 347 thou/uL (150-400); RBC 4.99 mil/uL (4.50-6.00); RDW 13.5 % (10.5-14.5); WBC 9.1 thou/uL (4.0-11.0)
[2021-01-03 11:01] LABS: ALBUMIN 2.3 g/dL (3.4-5.0); CALCIUM 8.3 mg/dL (8.5-10.1); CREATININE 0.9 mg/dL (0.7-1.3); MAGNESIUM 2.4 mg/dL (1.8-2.4); POTASSIUM 4.4 mmol/L (3.5-5.1); TOTAL BILIRUBIN 0.8 mg/dL (0.2-1.0); TOTAL PROTEIN 5.7 g/dL (6.4-8.2)
[2021-01-03 11:13] VITALS: BP 223/99
[2021-01-03 13:35] VITALS: BP 144/92
[2021-01-03 15:58] VITALS: BP 137/87
--- NOTE | 2021-01-03 16:11 | NUR ---
RN ASSUMED PT'S CARE AT 0700AM, PT STARTS TALKING AND PT CAN FOLLOW SOME COMMANDS, PT'S BOTH WRIST RESTRAINTS HAVE DC AT 1400PM, PT IS TLERATIVE PUREED DIET ,HONEY LIQUID WELL , PT NEEDS ASSIST WITH MEALS , PT IS ON O2 2L/MIN/NC, PT'S VS AND O2SAT ARE STABLE, PT IS CONTINUING TO TREAT COVID MEDICATIONS, AND PPN, PT STILL HAS R SIDE WEAKNESS, WE WILL KEEP EYE ON PT.
[2021-01-03 20:30] VITALS: BP 142/87
--- NOTE | 2021-01-04 03:23 | NUR ---
ASSUMED CARE OF PT, REMAIN CONFUSED AND AGITATED, ALOK AT IV LINES , AND COMMUNITY SERVICE OFFICER COORDINATOR,LESS IMPLUSIVE ON CLIMBING OUT OF , PT MEDICATED PRESCRIBED
[2021-01-04 04:13] VITALS: BP 177/106
[2021-01-04 06:15] VITALS: BP 170/75
[2021-01-04 07:47] VITALS: BP 127/83
[2021-01-04 11:23] VITALS: BP 149/91
[2021-01-04 15:04] VITALS: BP 149/87
--- NOTE | 2021-01-04 15:24 | NUR ---
SW reviewed chart and spoke with nursing and attending physician. Pt remains in Enhanced Isolation due to COVID. Pt is afebrile and on 2.5L of O2. Pt is on IV abx and IV steroids. Pt is out of restraints. Pt unable to work with PT/OT earlier today. Pt had Haldol this morning. Pt is on a pureed diet with honey thickened liquids. SOFIYA discussed case with [facility] rehab technician. [facility] is following. SOFIYA spoke with pt's sister, Luisa, via phone. Spoke with Luisa at length regarding discharge plans. Luisa asked about pt's Medicaid application. SOFIYA explained the [employer] [facility] is following to assist with Medicaid application. SW discussed that a timeframe for discharge and needs is unknown at this time. Pt's sister is willing to move to area to assist with pt's care after discharge. Pt's family face timed with pt last evening and explained that they are all willing to help hiim after discharge. ST to assist with cognition/communication. Pt is right handed. SW is following to assist as needed with discharge planning.
--- NOTE | 2021-01-04 17:56 | NUR ---
pt complexion pink, warm and dry. resting quietly, frequently repositioning self. aphasic, noting with pt positioned on r side a r eye/facial droop, r arm flaccid with pt unable to pull arm across midline of his body, follows command with all other extremities, tolerating po intake when up in bed. progressing. Luisa, daughter called inquiring regarding pt's belongings. pt only has shirt and short, no wallet or cards of any type. no belongings in security or in pt room.
[2021-01-04 19:59] VITALS: BP 152/100
[2021-01-05 03:33] VITALS: BP 154/99
--- NOTE | 2021-01-05 07:51 | NUR ---
PPN STOPPED AND PROGRESSING TO ORAL FOODS. PT VERY RESTLESS AND SOMEWHAT AGGITATED, IV HALIDOL GIVEN X1 WITH GOOD RESULTS. POC WITH IV ANTIBIOTICS. RAMOS HAD 500ML OUT. ISOLATION AND FALL PRECAUTIONS IN PLACE.
[2021-01-05 07:58] VITALS: BP 129/78
[2021-01-05 11:32] VITALS: BP 123/38
[2021-01-05 15:33] VITALS: BP 115/67
--- NOTE | 2021-01-05 15:38 | NUR ---
SW reviewed chart and spoke with nursing and attending physician. Pt remains in Enhanced Isolation due to COVID. Pt is afebrile and not requiring O2. Pt is on IV abx. PPN has been stopped as pt has been started on a diet. Pt is out of restraints. Discussed case with 5N rehabilitation tech and 5N SHEET METAL OPERATOR. Pt had Haldol this morning and not able to participate well with therapy. [facility] to follow. [facility] spoke with pt's sister, Luisa, regarding completion of Medicaid application. Pt does appear to qualify for Medicaid. Family to assist with providing documentation. SW asked attending physician to contact pt's sister to provide clinical update. Contact number for Luisa provided. SOFIYA is following to assist as needed with discharge planning.
[2021-01-05 21:31] VITALS: BP 144/88
[2021-01-06 05:50] VITALS: BP 153/82
--- NOTE | 2021-01-06 07:47 | NUR ---
PT HEART RATES UP AND DOWN. 30 MINUTE BURST OF 150. CALLED [employer] TESTER AND RECEIVED ORDERS FOR COREG 3.125 BID, WITH LOADING DOSE GIVEN AT 0600. RAMOS WITH GOOD DRAINAGE. PT OFF PPN AND EATING WITH ASSISTANCE FROM STAFF. FACE TIME WITH DAUGHTER AT 2230. HOURLY ROUNDING.
[2021-01-06 07:52] VITALS: BP 111/80
[2021-01-06 12:10] VITALS: BP 132/68
--- NOTE | 2021-01-06 12:12 | HC ---
[facility] [place] [address] CONSULTATION Name: WM HOOD Room #: 361-P ADM IN M.R.#: [id number] Admission: 12/29/20 Attend Phys: Faustino Smith MD Discharge: Date of : 59 Report #: [id number] THIS REPORT FOR: cc: SHELLI - No family physician/PCP FAM - No family physician/PCP Jacek Haley MD ~ DATE OF SERVICE: 12/29/2020 HISTORY OF PRESENT ILLNESS: This is a 65-year-old male patient [facility]. I reviewed the notes in the computer and I talked to Dr. Smith about this patient. I also talked to nurse practitioner about this patient. Subsequently, I was able to talk to the patient's friend. He is the only person, whose name is in the computer. He gave me the number of patient's daughter. I tried to reach her, but she did not fish bait picker the phone. When I saw this patient, this patient was completely aphasic and completely flaccid on the right side. Emergency Room notes indicate that the patient was moving all four extremities when he came in. I cannot talk to him because he has gone. I talked to Dr. Smith. He said he was wiggling, so I am not sure the movement he had was a voluntary movement or was just the reflex movement, but he was completely flaccid when I saw him. After talking to his friend a lot, it would appear the last seen well was yesterday morning, so looks like he was outside the window for any TPA when he came in. I do not see EMS run here in the computer, so I do not know what the further circumstances is. His CT scan of the head was done. I reviewed the CT scan, it does show acute changes of the stroke. Stroke is already showing up on the CT that will tend to indicate that this is mostly around 12 hours old or even 24 hours old. As far as I can tell from the friend, this patient was last seen or talked to yesterday morning, but that does not mean he was well at that time. Subsequently, we saw a CT-angiogram in this patient and that showed a large thrombus. I believe that this patient needed a higher level of care. So, I talked to nurse practitioner, Juan and told her to transfer this patient to another facility. She tells me that they have called all intervention centers here and none of them has any bed and they are completely full. We had tried to talk to them to see if they have any suggestion, but all of them told our nursing supervisor beater room that since they are not accepting the physician, they feel very uncomfortable discussing anything with me either. Situation is pretty difficult in this patient because of that. Subsequently, I talked to our vascular surgeon and he mainly recommended heparin and patient already got a dose of Lovenox, but looks like it is a small dose of Lovenox, he got. This patient is on a very high risk of having hemorrhagic transformation. This is just because of the large stroke and looks like he is [facility] [address] [facility] [place] [address] CONSULTATION Name: WM HOOD Room #: 361-P [facility] IN .R.#: [id number] Admission: 12/29/20 Attend Phys: Faustino Smith MD Discharge: Date of : 59 Report #: [id number] embolizing from the thrombus. Rest of the history is very limited and examination is very limited, but when I saw this patient, this patient is completely hemiplegic and aphasic. Nurses tell me the same thing and CT scan shows a stroke, which is about 12 hours or maybe longer than that duration. I talked to the neuroradiologist, Dr. Newton and he confirmed the stroke is about 12 hours hour or maybe 24 hour in duration. My feeling is that this patient developed a large thrombus because of hypercoagulable state caused by a COVID or some other reason. He probably started embolizing 24 hours prior to admission and thus embolization or even occlusions has led to what looks like a large stroke at the moment. Although it would be very desirable to send him to the higher level of care, the prognosis for this patient is very guarded. It does not matter what is done in this patient, it is unlikely to produce any desirable result, even if it does not lead to major complication and all those approaches can lead to major complication. There is no well-established treatment for thrombus, which is weird like this. Heparin is technically not given in stroke patient, but with thrombus, it is tried but that makes the patient predisposed to have hemorrhagic conversion, because his stroke looks large. We will go ahead and give him heparin. We will not give him bolus. We will start with a small dose and then build up. We are trying to arrange an MRI in this patient, but it will mainly tell the extent of the stroke. I think we need to talk to the family about how aggressive they want to be and I spent more than 2 hour of time in this patient, trying to coordinate this care. Thank you very much for this referral. <ELECTRONICALLY SIGNED> By: Jacek Haley MD 01/06/21 1212 [id number] Jacek Haley MD /nyasia
[2021-01-06 14:28] LABS: HEMATOCRIT 46.9 % (42.0-52.0); HEMOGLOBIN 15.8 gm/dL (14.0-18.0); MCH 30.8 pg (26.0-34.0); MCHC 33.7 g/dL (28.0-37.0); MCV 91.4 fL (80.0-100.0); RBC 5.13 mil/uL (4.50-6.00); RDW 13.3 % (10.5-14.5); WBC 9.1 thou/uL (4.0-11.0)
[2021-01-06 14:40] LABS: CALCIUM 7.9 mg/dL (8.5-10.1); CREATININE 1.1 mg/dL (0.7-1.3); MAGNESIUM 2.5 mg/dL (1.8-2.4); POTASSIUM 4.4 mmol/L (3.5-5.1)
[2021-01-06 15:48] VITALS: BP 132/94
--- NOTE | 2021-01-06 16:48 | NUR ---
SOFIYA reviewed chart and spoke with nursing and attending physician. Pt remains in Enhanced Isolation due to COVID. Pt is afebrile and off O2. Pt is on IV abx. [facility] is following for possible admission to in acute rehab. Haldol has been discontinued. Pt started on cardiac med today. SOFIYA spoke with pt's sister, Luisa, via phone. Provided update. Long discussion with Luisa regarding plan of care and discharge plan. Luisa states that a nurse told family that pt's Medicaid application was signed and submitted. Luisa asked who signed the ppwk as she was told by [facility] that pt will need to be evaluated to determine his capacity/decision making ability. SOFIYA explained that a Medicaid moe has not been submitted as of yet. Luisa asked why someone from [facility] was calling her about her brother. SOFIYA explained that [place] and [facility] are owned by [facility] and are sister facilities. Pt's sister states that she was told that pt's friend, Eric, came to [facility] and spoke with a physician about pt's status. SOFIYA explained that Luisa and pt's dtr, Lisa, are the only ones listed as contacts for pt. Luisa asks for a psych consult to determine capacity and to speak with attending physician for a medical update. SOFIYA explained that if pt is deemed competent, [facility] is only able to provide medical DPOA ppwk. Pt's sister was upset that financial DPOA ppwk cannot be completed. SOFIYA provided contact info to attending physician. SOFIYA also updated Director of Case Mgmt. No weekend discharge planned. SOFIYA is following to assist as needed with discharge planning.
[2021-01-06 19:28] VITALS: BP 133/89
--- NOTE | 2021-01-06 19:41 | NUR ---
RN ASSUMED PT'S CARE AT 0700-1900PM, PT IS CONFUSED, BUT PT CAN FOLLOW SOME COMMANDS, PT IS ON ROOM AIR , PT'S VS ARE STABLE, PT 'S R SIDE HAS WEAKNESS ,SO PT NEEDS HELP MEALS, PT EATS GOOD WITH ASSIST, PT'S COVID ISOLATION HAS DC PER ID DR ORDER,
[2021-01-07 04:35] VITALS: BP 141/89
--- NOTE | 2021-01-07 05:06 | NUR ---
PROGRESS PT MORE ALERT AND RESPONSIVE AT THIS TIME TRIES TO FOLLOW COMMANDS RIGHT SIDE STILL FLACCID, PT DRANK 360 ML'S WITH ASSISTANCE ORAL CARE PROVIDED SOME OF THE THICK WHITE SLOUGH ON TONGUE REMOVED PT ASSISTED IN REPOSITIONING. VSS CONTINUE POC.
[2021-01-07 07:11] VITALS: BP 111/73
[2021-01-07 15:03] VITALS: BP 103/63
[2021-01-07 19:24] VITALS: BP 127/61
[2021-01-08 04:03] VITALS: BP 158/101
--- NOTE | 2021-01-08 07:43 | NUR ---
PROGRESS PT PROGRESSING ABLE TO TURN SELF IN BED, PICKED UP CUP WITH RIGHT ARM AND DRANK, LIFTING HEAD UP AND ATTEMPTING TO SPEAK. IVF'S CONTINUE, RAMOS INTACT. VSS CONTINUE POC.
[2021-01-08 09:28] VITALS: BP 138/89
[2021-01-08 16:00] VITALS: BP 106/62
[2021-01-08 19:54] VITALS: BP 151/93
--- NOTE | 2021-01-08 22:13 | NUR ---
PT RESTING IN BED, WATCHING TV. PT HAS RESTLESS LEGS, PT IS GRABBING AT IV POLE AND PULLING IT TOWARDS BED. PT ABLE TO BE VERBALLY REDIRECTED. BED ALARM ON. PT COMPLIANT WITH NECTAR LIQUIDS.
[2021-01-09 05:13] VITALS: BP 162/109
[2021-01-09 05:25] LABS: CALCIUM 7.8 mg/dL (8.5-10.1); CREATININE 0.7 mg/dL (0.7-1.3); POTASSIUM 4.1 mmol/L (3.5-5.1)
[2021-01-09 07:06] VITALS: BP 152/87
--- NOTE | 2021-01-09 10:17 | NUR ---
Asssumed care of pt this AM. Pt refused to participate in orientation questions. Pt only wants to sleep and pulls covers over his head. Pt refused to eat breakfast, but was able to give morning meds with applesauce. Pt remains on RA, denies any pain. Garg in place & patent. No isolation. Will continue to monitor.
--- NOTE | 2021-01-09 11:10 | NUR ---
PT SISTER PILI CALLED, UPDATED ON PT CARE. DENIES ANY QUESTIONS AT MOMENT
[2021-01-09 15:16] VITALS: BP 144/81
--- NOTE | 2021-01-09 15:58 | NUR ---
SOFIYA reviewed chart and spoke with nursing and attending physician. Enhanced Isolation precautions have been discontinued. Psych consult ordered and is pending at this time to assess pt's capacity to make his own medical/financial decisions. SOFIYA discussed case with 5N clinical rehabilitation coordinator. [facility]N is following to determine if pt meets admission criteria for inpt acute rehab. Pt remains on a pureed diet with honey thickened liquids. SOFIYA left voice message for pt's sister, Luisa, to provide update. Awaiting psych consult at this time. Will need signature on Medicaid application for submission. SOFIYA is following to assist as needed with discharge planning.
[2021-01-09 19:24] VITALS: BP 139/83
[2021-01-09 23:21] VITALS: BP 142/91
--- NOTE | 2021-01-10 03:38 | NUR ---
PT ARRIVED THE ON THE UNIT AT 2300. PT IS ALERT BUT NON-VERBAL. PT HAS R SIDED WEAKNESSS. PT HAS A RAMOS IN PLACE. VS ARE WITHIN NORMAL RANGE AND ASSESSMENT DOCUMENTED. PT BECAME RESTLESS, AGITATED AND CRIED DURING THE NIGHT. BED ON LOWEST LOCKED POSITION WITH BED ALARM ON AND CALL LIGHT WITHIN REACH. WILL CONTINUE TO MONITOR
[2021-01-10 06:33] LABS: CALCIUM 7.7 mg/dL (8.5-10.1); CREATININE 0.7 mg/dL (0.7-1.3); POTASSIUM 3.7 mmol/L (3.5-5.1)
[2021-01-10 07:43] VITALS: BP 137/89
--- NOTE | 2021-01-10 13:06 | NUR ---
Pt is awake oriented to self with expressive aphasia and right sided weakness. He remains on room air with no skin issues. On a pureed nectar thick diet and has a patent zhang catheter. Dietary Supplements were ordered today. Gave meds crushed in applesauce. Not on telemetry. Fall precautions in place. Bed in low position and call light within reach. Will monitor until end of shift.
--- NOTE | 2021-01-10 16:47 | NUR ---
PT AND OT WORKED WITH PT THIS DAY. [facility] STILL FOLLOWING FOR POSSIBLE ADMISSION. MONIKA SIGNED FORM FOR [facility] [employer] TO ASSIST IN FIELING MEDICAID APPLICATION. CM REACHED OUT TO SISTER KAITLYNN AND PROVIDED UPDATE. CM FOLLOWING REGARDING HOPEFUL DC TO [facility] TOMORROW.
[2021-01-10 20:37] VITALS: BP 122/77
[2021-01-11 05:48] LABS: CREATININE 0.7 mg/dL (0.7-1.3); POTASSIUM 3.6 mmol/L (3.5-5.1)
[2021-01-11 07:34] VITALS: BP 151/94
--- NOTE | 2021-01-11 11:26 | NUR ---
PT IS LETHARGIC AND UNABLE TO COMMUNICATE VERBALLY. Speech therapy said that he only answers yes and no questions correctly 60% of time so we should use gestures. Pt does not like to sit up in bed let alone get out of bed. He cries when pt. sees any family. He is depressed and can get angry if you try to engage him to much. He is a 2 person max assist to get out of bed. with right sided weakness. He has an IV in his left AC running NS at 100/hour. We have to wrap arm with kerlix and coban to prevent him from pulling IV out. No BM today. Pt has a patent zhang catheter draining yellow urine. He remains on a pureed diet not eating much. Bed in low position to prevent falls. Call light within reach. Turned q 2 hours to prevent skin breakdown.
--- NOTE | 2021-01-11 12:32 | NUR ---
PT IS TO DC TO [facility] THIS DAY. PT'S SISTER KAITLYNN IS AWARE AND AGREEABLE AND MNO INDICATED THAT SHE COULD SIGN HIS CONSENTS FOR ADMISSION TO 5[facility]. REPORT TO BE CALLED TO . NO OTHER CM INTERVENTION INDICATED. CASE CLOSED.
[2021-01-11] MEDS ORDERED: ELIQUIS5 MG PO (12:42)
[2021-01-11] MEDS ORDERED: VENTOLIN HFA 1818 GM INH (12:42)
[2021-01-11] MEDS ORDERED: CARVEDILOL3.125 MG PO (12:43)
[2021-01-11] MEDS ORDERED: ASPIRIN325 PO (12:43)
[2021-01-11 16:10] VITALS: BP 107/66
[2021-01-11 17:35] VITALS: BP 107/66
== END 2021-01-11 18:18 | DRG 177 ==
LOC: ER 15:47 → 4W 12-29 00:39 → EROBS 12-29 00:39 → 3W 12-29 00:39 → 4W 01-09 22:56
PROVIDERS: Nurse Practitioner Family; Psychiatry & Neurology Neuromuscular Medicine; Specialist; Student in an Organized Health Care Education/Training Program; ADMIT Internal Medicine; ATTEND Internal Medicine
PROC: XW033E5 Introduction of Remdesivir Anti-infective into Peripheral Vein, Percutaneous Approach, New Technology Group 5 (ICD-10-PCS; principal; 2020-12-29)
DX: U07.1 COVID-19 (principal); J12.82 Pneumonia due to coronavirus disease 2019; E43 Unspecified severe protein-calorie malnutrition; I63.512 Cerebral infarction due to unspecified occlusion or stenosis of left middle cerebral artery; J96.01 Acute respiratory failure with hypoxia; G81.94 Hemiplegia, unspecified affecting left nondominant side; D68.59 Other primary thrombophilia; R47.01 Aphasia; G93.40 Encephalopathy, unspecified; G81.91 Hemiplegia, unspecified affecting right dominant side; I10 Essential (primary) hypertension; F32.9 Major depressive disorder, single episode, unspecified; F17.210 Nicotine dependence, cigarettes, uncomplicated; I25.10 Atherosclerotic heart disease of native coronary artery without angina pectoris; E78.5 Hyperlipidemia, unspecified; E87.6 Hypokalemia; F19.10 Other psychoactive substance abuse, uncomplicated; I65.22 Occlusion and stenosis of left carotid artery; E03.9 Hypothyroidism, unspecified; F09 Unspecified mental disorder due to known physiological condition; Z95.5 Presence of coronary angioplasty implant and graft; Z68.22 Body mass index [BMI] 22.0-22.9, adult; Z79.82 Long term (current) use of aspirin; Z79.899 Other long term (current) drug therapy
CPT/HCPCS: 10040; 10080

== ENCOUNTER 2021-01-11 09:02 | Inpatient (IN) | payer OTHER ==
[~2021-01-11] VITALS: Ht 177.8 cm; Wt 71.7 kg
[2021-01-11] MEDS ORDERED: ELIQUIS5 MG PO (12:42)
[2021-01-11] MEDS ORDERED: VENTOLIN HFA 1818 GM INH (12:42)
[2021-01-11] MEDS ORDERED: CARVEDILOL3.125 MG PO (12:43)
[2021-01-11] MEDS ORDERED: ASPIRIN325 PO (12:43)
--- NOTE | 2021-01-11 16:15 | NUR ---
Chart review. Unable to visit with leanna at this time. Jayjay called and spoke with his sister sujatha via phone call. Intro to cm, dcp and weekly team meeting. If i need to be there to encourage him to work with therapy i can if that helps, call any time, i was told you would be calling and thank you. No other visitor at this time, just daughter and me, we are going to work on co-guardianship, will need letter of competency. we are going to meet with any chemistry technician. We been to his apartment where he was living with roommates and can not seem to found his ID card. 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 Active listen during phone call. Noted he was independent prior to hospital, he was here prior to + with COVYUN, was dc home and was back in few days later with stroke. [facility] is working on medicaid for him. No dme prior to hospital. Will cont following as needed for dc needs.
[2021-01-11 18:30] VITALS: BP 128/82
[2021-01-11 19:33] VITALS: BP 118/79
--- NOTE | 2021-01-11 19:37 | NUR ---
PT ARRIVED TO UNIT VIA HOSPITAL BED, DAUGHTER CHRISTIE WAS AT BEDSIDE AND ASSISTED TO ANSWER HEALTH HX QUESTIONS PT HAS SEVERE GLOBAL APHASIA AND IS UNRELIABLE WITH YES AND NO QUESTIONS. NOTED THAT PT IS ABLE TO FOLLOW SIMPLE ONE STEP COMMANDS. HE EXHIBITED FRUSTRATION, BUT WAS COOPERATIVE AND ATTEMPTED MULTIPLE TIMES TO COMMUNICATE NEEDS. IV WAS SET UP PER BRUCE LONG, AND IS RUNNING AT 100/HR NS. RAMOS PATENT AND DRAINING.
--- NOTE | 2021-01-12 01:08 | NUR ---
PT ASSESSMENT COMPLETED AND VSS. MEDS GIVEN ORDERED. PT TOLERATED NECTOR THICK LIQUID SIPS. RAMOS DRAINING YELLOW URINE. INC OF ONE MODERATE SOFT BROWN STOOL. ZGUARD APPLIED TO RED COCCYX/BUTTOCK. PT CONTINUES TO HAVE APHASIA. PT WAS ABLE TO EXPRESS THAT HE WAS COLD AND THIRSTY. OTHER TIMES PT WAS NOT ABLE TO EXPRESS HIS THOUGHTS CLEARLY. PT WAS VERY FRUSTRATED WITH NOT BEING ABLE TO COMMUNICATE. PROVIDED MUCH EMOTIONAL SUPPORT. ASST WITH REPOSITION FREQUENTLY. WILL CONTINUE TO MONITOR FREQUENTLY.
[2021-01-12 06:17] LABS: HEMATOCRIT 37.3 % (42.0-52.0); HEMOGLOBIN 13.1 gm/dL (14.0-18.0); MCH 31.6 pg (26.0-34.0); MCV 90.2 fL (80.0-100.0); RBC 4.14 mil/uL (4.50-6.00); RDW 13.3 % (10.5-14.5); WBC 7.8 thou/uL (4.0-11.0)
[2021-01-12 06:36] LABS: CALCIUM 8.2 mg/dL (8.5-10.1); CREATININE 0.7 mg/dL (0.7-1.3); MAGNESIUM 2.1 mg/dL (1.8-2.4); POTASSIUM 3.5 mmol/L (3.5-5.1)
[2021-01-12 08:00] VITALS: BP 122/87
--- NOTE | 2021-01-12 10:54 | NUR ---
ASSUMED CARE OF PT AT 0700 THIS MORNING. CONTINUING CARE FROM NIGHT NURSE. ASSESSMENT CHARTED AND NO CHANGE, OTHERWISE UNREMARKABLE. PT [facility]. IV IN LT SL. RACHEL HUTCHINSON IN PLACE, PT IS CONFIDENTIAL AND ONLY SISTER AND DAUGHTER ARE ONLY VISITORS ALLOWED. VSS, PT WORKING WITH PHYS THPY AND OT. MEDS AND TX GIVEN NEEDED AND SCHEDULED. FALL RISK PRECAUTIONS IN PLACE. CALL LIGHT AND OTHER NEEDS ARE WITHIN REACH. WILL CONTINUE TO MONITOR and note any changes.
[2021-01-12 19:23] VITALS: BP 113/68
--- NOTE | 2021-01-13 00:13 | NUR ---
PT ASSESSMENT COMPLETED AND VSS. MEDS GIVEN ORDERED. NECTOR THINK TOLERATED. ASST WITH REPOSITION. LILLIAN CARE PROVIDED. SLEEPING WELL AT THIS TIME. WILL CONTINUE TO MONITOR FREQUENTLY. PT DENIES PAIN AND APPEARS COMFORTABLE. SAT WNL ON RA.
[2021-01-13 08:00] VITALS: BP 129/84
--- NOTE | 2021-01-13 09:11 | NUR ---
PT LYING IN BED THIS AM. ST WORKING WITH PATIENT. PT IS EATING FOOD WITH LEFT HAND. PT FLACCID WITH RT HAND AND RT LE. PT IS APHASIC AND DOES ANSWER YES AND NO WITH HEAD NODDING. PT SEEMS TO POCKET FOOD TO RT CHEEK AND ENCOURAGED TO USE HIS TONGUE TO MOVE FOOD OUT OF RT CHEEK SIDE. PT ALSO FALLS ASLEEP EASILY. PT WAS TURNED TO LEFT SIDE. BOTTOM IS PINK ABOVE COCCYX, APPLIED BARRIER CREAM. PT INCON. OF URINE WITH VOIDING. PT HAS NECTOR THICK LIQUID AND TOLERATES WELL. PT TOOK MEDS WHOLE IN APPLESAUCE WITH A FEW PILLS AT A TIME.
--- NOTE | 2021-01-13 13:53 | NUR ---
Cont discharge planning as needed for dc needs.
--- NOTE | 2021-01-13 16:32 | NUR ---
PT SISTER HERE IS ABOUT GUARDIAN INFORMATION. PAGED DR. TOM ABOUT PT AND GETTING SOMETHING SIGNED TO TAKE TO COURT SATURDAY. STATED SHE WAS NOT ON THE CASE AT THIS TIME. SHE DID MAKE A NOTE ABOUT PT ON PREVIOUS FLOOR. PAGED DR. TAVAREZ AND DIDN'T GET ANSWER. SISTER STATED SHE IS GETTING FRUSTRATED. CONRAD CHIEF PSYCHOLOGIST DID CALL BACK AND STATED SISTER NEEDS TO GO TO [facility] AND SHE CAN GET INFORMATION FROM THE DRNisa'S NEEDED FOR FILING.
--- NOTE | 2021-01-13 16:40 | NUR ---
[facility] CALLED AND STATED THE SISTER DID COME DOWN WITH PAPER WORK FOR GUARDIANSHIP. MALIK IN [facility] WILL TAKE CARE OF THE NEEDED DOCUMENTS ON SATURDAY.
--- NOTE | 2021-01-13 18:16 | NUR ---
DR. TAVAREZ FILLED OUT A FORM FOR SISTER TO TAKE TO COURT. SISTER WAS VERY APPRECIATED FOR PAPER.
[2021-01-13 19:35] VITALS: BP 107/73
--- NOTE | 2021-01-14 00:05 | NUR ---
PT ALERT WITH EXPRESSIVE APHASIA. RIGHT SIDE FLACCID. INCONT OF URINE. PT DENIES PAIN OR DISCOMFORT. BED ALARM ON FOR SAFETY. PT APPEARS TO BE SLEEPING ON HOURLY ROUNDS.
[2021-01-14 08:00] VITALS: BP 135/98
--- NOTE | 2021-01-14 18:33 | NUR ---
PT ATE REALY WELL FOR DINNER. PT SEEMS IN A PLEASANT MOOD. PT ABLE TO FEED SELF. PT NEEDS TO BE SAT UP IN BED TO EAT. ATTEMPTED TO TURN TV UP ON VOLUME, PT STATED HE DIDN'T WANT VOLUME UP. PT IS MORE VERBAL TODAY. PLACED CONDOM CATH IN PLACE. PT ABLE TO TAKE OFF BRIEF. PT AGREEMENT WITH CONDOM CATH PLACEMENT. SISTER VISITED TODAY AND SAID SHE SEEMS HE IS IN BETTER SPIRITS AND GETTING STRONGER.
[2021-01-14 19:55] VITALS: BP 122/94
--- NOTE | 2021-01-15 00:24 | NUR ---
PT ALERT WITH EXPRESSIVE APHASIA. RIGHT SIDE FLACCID. PT TOOK HS MEDS IN APPLESAUCE WITHOUT DIFFICULTY. TRIED CONDOM CATH X 2 WITHOUT SUCCESS. INCONT OF URINE IN LARGE AMTS. INCONT LARGE STOOL AT START OF SHIFT. PT HAD STOOL ON HIS HANDS, ON THE FLOOR AND ON THE SIDERAILS. PT DENIES PAIN OR DISCOMFORT. BED ALARM ON FOR SAFETY. PT APPEARS TO BE SLEEPING ON HOURLY ROUNDS.
[2021-01-15 07:45] VITALS: BP 122/74
[2021-01-15 19:39] VITALS: BP 108/64
--- NOTE | 2021-01-15 22:06 | NUR ---
PT ASSESSMENT COMPLETED AND VSS. MEDS GIVEN ORDERED AND WELL TOLERATED. FALL PRECAUTIONS IN PLACE. PRN TYLENOL HELPFUL FOR BACK PAIN. ASST WITH REPOSITION FOR COMFORT. PT INC OF URINE. ENC NECTOR THICK LIQUIDS WITH ASST ORDERED. SLEEPING WELL. WILL CONTINUE TO MONITOR FREQUENTLY.
[2021-01-16 08:00] VITALS: BP 139/84
--- NOTE | 2021-01-16 08:41 | NUR ---
PT LYING IN BED. ST STATED HE WAS GETTING FRUSTRATED WITH BREAKFAST AND PUSHING TRAY AWAY FROM HIM. PT HAS GRIMACE ON FACE AND ASKED IF HE WANTED TYLENOL PT SHOOK HEAD YES. PT WAS INCON EARLY THIS AM AND WAS CLEANED, PT BOTTOM SKIN IS INTACT, BARRIER CREAM APPLIED. PT ABLE TO ROLL TO RT SIDE OF BED. PT STILL NOT COMMUNICATING WITH STAFF JUST NODS YES OR NO. PT HAS SCD'S ON. PT DOESN'T LIKE HOB ELEVATED UNLESS HE IS EATING. IV LFT FA TAKEN OUT BY NIGHT NURSE. RT ARM IS FLACCID. LUNGS CLEAR, NO COUGH.
--- NOTE | 2021-01-16 13:16 | NUR ---
PT WAS SITTING OUT IN DINNING ROOM FOR LUNCH. PT ATE AROUND 75% OF LUNCH. PT BACK TO BED NOW AT THIS TIME. APPLIED AIR LOSS MATTRESS PUMP TO BED. PT WANTED LIGHT OFF AT THIS TIME.
--- NOTE | 2021-01-16 15:05 | H ---
[facility] [place] [address] HISTORY AND PHYSICAL Name: WM HOOD Room #: 512-P ADM IN M.R.#: [id number] Admission: 01/11/21 Attend Phys: Prince Unger MD Discharge: Date of : 59 Report #: [id number] THIS REPORT FOR: cc: FAM - No family physician/PCP FAM - No family physician/PCP Prince Unger MD ~ DATE OF SERVICE: 01/11/2021 HISTORY OF PRESENT ILLNESS: The patient is a 65-year-old male who was originally admitted to [facility] on 12/29/2020 with acute mental status changes noted for a few hours at home by his roommate. MRI of the head confirmed a large acute left MCA infarct and occluded left ICA. Neurology was consulted. He has severe aphasia and dense hemiparesis. He had been confused and required restraints. D-dimer and CRP were elevated. CTA of the chest was negative for PE, did show extensive pneumonia. ID consulted, placed on antibiotics. Drug and alcohol was negative. He has a history of tobacco abuse and meth use, although reports has not used in a few weeks. He was diagnosed COVID-19 positive on 12/22/2020 and was admitted on 12/26/2020 when he was discharged to home in stable condition. The patient has continued to have severe aphasia and dense right-sided weakness. His agitation has lessened with no longer needing restraints. He has been more cooperative with therapies, especially directed functional therapies rather than range of motion activities. He has now been admitted for acute in-hospital inpatient rehabilitation. He was seen by Speech Therapy and is noted to have significant dysphagia and is on a thickened liquid diet. PAST MEDICAL HISTORY: Includes hypertension, depression, elevated cholesterol. He had a cardiac stent in 2006, degenerative disk disease. There is thyroid abnormalities that is noted. HABITS: History of methamphetamine abuse, chronic tobacco abuse, chronic noncompliance. MEDICATIONS: Please see the full medication listing. ALLERGIES: No known drug allergies. SOCIAL HISTORY: Has been living at home with a roommate in a house, did not utilize any assistive device, was independent in ADLs and IADLs. Upon discharge from the last admission, he was able to ambulate 75 feet without an assistive device. He does have an involved sister and an involved daughter as noted. Sister's name Luisa with the daughter, Ginger. REVIEW OF SYSTEMS: Somewhat difficult to obtain with his severe aphasia, but no obvious complaints of chest pain, shortness of breath, abdominal discomfort. He is obviously frustrated with his current condition. [address] [address] HISTORY AND PHYSICAL Name: WM HOOD Room #: 512-P [facility] IN ..#: [id number] Admission: 01/11/21 Attend Phys: Prince Unger MD Discharge: Date of : 59 Report #: [id number] PHYSICAL EXAMINATION: GENERAL: He is a slender 65-year-old male. Examination was performed on 01/11/2021. The patient is a bearded white male. He will fix and follow with his eyes. He has a right facial droop. He is able to mumble some words, but they are incomprehensible. He will follow basic 1-step commands. VITAL SIGNS: Temperature 36.8, pulse 74, respirations 20, blood pressure 118/79. CHEST: Sounded clear to auscultation, although it is difficult to get him to take a full breath. CARDIOVASCULAR: Sounded regular rate and rhythm. ABDOMEN: Bowel sounds positive, nontender. GENITOURINARY AND RECTAL: Deferred. NEUROLOGIC AND EXTREMITIES: He has dense right upper extremity and right lower extremity weakness. No obvious volitional movement was noted. Tone was decreased. Negative Muro's. There was no clonus. He does have significant swallowing issues and is on a mechanical soft nectar thickened liquid diet. Functionally, he has been mod assist to try to come to stand or is max assist for basic bed mobility. He does have some right-sided neglect. Tends to have left gaze preference. ASSESSMENT: A 65-year-old male with the following problem list: 1. Large left middle cerebral artery infarct. 2. Dense right hemiplegia. 3. Severe aphasia. Will follow basic commands. 4. Dysphagia, on mechanical soft nectar thickened liquids. 5. Occluded left internal carotid artery. 6. Recent COVID-19 pneumonia. 7. History of methamphetamine abuse and tobacco abuse. 8. Hypertension. 9. Protein calorie malnutrition. PLAN: The patient has been admitted for acute in-hospital inpatient rehabilitation. Please see the patient's previous and current functional status. As far as risk of complications, he has multiple medical comorbidities as noted above. Initial plan of care involves the interdisciplinary acute inpatient rehabilitation program. Measurable functional goals would be for the patient to become improved as far as basic transfers, bed mobility, maximizing his functional independence so he can hopefully go to a home level. His sister and daughter are noted to be involved. Prognosis is reasonably good with estimated length of stay probably fairly long at 14-21 days or potentially longer as warranted. Potential barriers would include his multiple medical comorbidities and decreased functional status. The patient meets diagnostic criteria for an acute in-hospital inpatient [facility] [address] [place] [address] HISTORY AND PHYSICAL Name: WM HOOD Room #: 512-P ADM IN ..#: [id number] Admission: 01/11/21 Attend Phys: Prince Unger MD Discharge: Date of : 59 Report #: [id number] rehabilitation stay. He meets the medical necessity criteria. He has the tolerance for therapies and has appropriate discharge goals back to the home setting. <ELECTRONICALLY SIGNED> By: Prince Unger MD 01/16/21 [id number] Prince Unger MD /nt
[2021-01-16 19:46] VITALS: BP 133/88
--- NOTE | 2021-01-17 01:31 | NUR ---
PT ASSESSMENT COMPLETED AND VSS. MEDS GIVEN ORDERED AND WELL TOLERATED. FALL PRECAUTIONS IN PLACE. PT TRYING TO CLIMB OUT OF BED ONE TIME EARLY DURING SHIFT. PT INC OF LARGE AMOUNT OF URINE. Z GUARD APPLIED TO RED BOTTOM. PRN TYLENOL HELPFUL FOR BACK PAIN. ASST WITH REPOSITION FOR COMFORT. ENCOURAGED NECTOR THICK LIQUIDS. PT APPEARS TO BE DEPRESSED AND FRUSTRATED. HE IS NOT TRYING TO USE HIS WORDS LIKE HE WAS BEFORE. PROVIDED MUCH EMOTIONAL SUPPORT. SLEEPING WELL AT THIS TIME. WILL CONTINUE TO MONITOR FREQUENTLY.
[2021-01-17 07:15] VITALS: BP 148/102
--- NOTE | 2021-01-17 08:20 | NUR ---
PT WORKING WITH ST THIS AM WITH CARDS AND HAVING TO SAY YES OR NO TO THE CARDS. PT DOES GET FRUSTRATED AT TIMES DUE TO THE APHASIA. PT TOOK MEDS WHOLE IN APPLESAUCE. PT DENIES ANY PAIN AT THIS TIME. PT LUNGS CLEAR. RT SIDE IS FLACCID AND RT LEG. PT ABLE TO FEED SELF WITH OBSERVATION.
--- NOTE | 2021-01-17 14:00 | NUR ---
PT SISTER VISITING AND STATED HE NEEDED THE NURSE. PT LOOKING LEFT TOWARDS TABLE ASKED IN PT NEEDED TO VOID, HE SHOOK HEAD NO, STILL LOOKING AT TABLE. HELD UP URINAL AND PT SHOOK HEAD NO, PT HOLDING ONTO PENIS AND PULLING IT AND GRIMACING. PT TURNED TO RT SIDE AND VOIDED LARGE AMT OF URINE IN BRIEF AND WET HIS SHORTS. CHANGED PT BRIEF AND SHORTS, PT BOTTOM IS INTACT, NO REDDNESS NOTED.
--- NOTE | 2021-01-17 14:00 | NUR ---
Team meeting, recommendation: he unaware of right-side r/t stroke. hx of substance abuse in past. Sister having hard time getting his belonging from his own home r/t roommates he was helping prior to hospital will not answer. Right shoulder was tapped for support. moderate sever cognitive. langue unable to assess. yes, no is not reliable. b sister is contact with [facility] rep to help move co-guardianship through quickly. [facility] soft diet with nectar thick liquid. 100 % supervision with all meals. sister going to try take care of him at me. 02/03/21. he will need / care. Ability milly visit.
--- NOTE | 2021-01-17 16:30 | NUR ---
ASKED PT IF HE NEEDED TO VOID, PT REFUSED TO USE URINAL AT THIS TIME.
[2021-01-17 17:30] VITALS: BP 128/74
--- NOTE | 2021-01-17 18:12 | NUR ---
PT FINISHED EATING DINNER, PT USING HANDS TO EAT, ENCOURAGED PT TO USE SILVERWARE. PT DID USE FORK OR SPOON TO EAT. OFFERED IF PT NEEDED TO VOID PT REFUSED AT THIS TIME. PT LIKES HEAD OF BED DOWN. CLEANED AROUND PT MOUTH AFTER EATING. PT STILL NOT USING WORDS.
[2021-01-17 19:29] VITALS: BP 113/68
--- NOTE | 2021-01-18 00:13 | NUR ---
PT ALERT WITH EXPRESSIVE APHASIA. RIGHT SIDE FLACCID. INCONT OF URINE IN LARGE AMTS. PT TOOK HS MEDS IN APPLESAUCE WITHOUT DIFFICULTY. PT DENIES PAIN OR DISCOMFORT. BED ALARM ON FOR SAFETY. PT APPEARS TO BE SLEEPING ON HOURLY ROUNDS.
[2021-01-18 07:15] VITALS: BP 136/88
--- NOTE | 2021-01-18 08:50 | NUR ---
PT WORKING WITH ST AND LISTENING TO MUSIC. ENCOURAGING PT TO HUM TO MUSIC. PT MOVING HEAD TO MUSIC. PT TOOK MEDS WITHOUT ANY ISSUES WHOLE WITH APPLESAUCE. PT STILL HAS RT SIDE WEAKNESS AND FLACCID. PT STILL NOT VERBALIZING HIS WORDS FOR HIS NEEDS. SISTER IS HERE VISITING AND STILL THINKS PT IS TO TIRED FROM EFFEXOR MEDICATION. SHE SAID SHE IS SENSITIVE TO MUSCLE RELAXERS AND WHEN SHE HAD FLEXERIL BEFORE SHE WAS OUT OF IT. SHE WANTS TO KNOW IF THERE IS A OTHER OPTION FOR DEPRESSION.
--- NOTE | 2021-01-18 09:48 | NUR ---
Cm left message with sister sujatha requesting a call back r/t discharge planning.
--- NOTE | 2021-01-18 12:00 | NUR ---
Jayjay received a return call from sister Luisa. Jayjay passed on information and education from team meeting yesterday. She stated repeatedly, I live in [place] and leaving Saturday to go back. That is too soon to found or afford a place to live. he cannot go to his daughter's house because she has kids and stairs at her house. Can't move forward till his Medicaid or social security is active. I cannot do any physical assist for him not even dress him. this is to fast per Luisa. Active listen, education that jayjay would pass on information to MD and then would be in touch.
[2021-01-18 19:17] VITALS: BP 128/79
--- NOTE | 2021-01-19 03:41 | NUR ---
ASSUMED CARE AT 1900 OF 01/18. PATIENT IS ALERT WITH EXPRESSIVE APHASIA. ABLE TO COMMUNICATE HAVING PAIN IN HIS BACK THROUGH GESTURES. PRN TYLENOL ADMINISTERED TO MANAGE PAIN. TOLERATED ORAL MEDICATIONS WHOLE IN APLE SAUCE. CONTINUES WITH RIGHT HEMIPARESIS. INCONTINENT OF BLADDER, AND REQUIRED 1 LINENE CHANGE SO FAR. PATIENT REFUSED TO USE URINAL WHEN OFFERED AT HS. FALL PRECAUTIONS IN PLACE, CALL LIGHT W/IN REACH. WILL CONTINUE TO MONITOR.
[2021-01-19 08:00] VITALS: BP 126/74
[2021-01-19 12:54] LABS: ABSOLUTE NEUTROPHILS 4.6 thou/uL (1.4-8.2); BASOPHILS 1.3 % (0.0-2.0); EOSINOPHILS 1.8 % (0.0-3.0); HEMATOCRIT 40.9 % (42.0-52.0); HEMOGLOBIN 13.8 gm/dL (14.0-18.0); LYMPHOCYTES 14.7 % (24.0-44.0); MCH 31.1 pg (26.0-34.0); MCHC 33.9 g/dL (28.0-37.0); MCV 91.9 fL (80.0-100.0); MONOCYTES 10.5 % (1.0-8.0); PLATELET COUNT 336 thou/uL (150-400); POLYS 71.7 % (36.0-66.0); RBC 4.45 mil/uL (4.50-6.00); RDW 13.6 % (10.5-14.5); WBC 6.5 thou/uL (4.0-11.0)
[2021-01-19 13:08] LABS: ALBUMIN 2.7 g/dL (3.4-5.0); CALCIUM 8.8 mg/dL (8.5-10.1); POTASSIUM 3.7 mmol/L (3.5-5.1); TOTAL BILIRUBIN 0.4 mg/dL (0.2-1.0); TOTAL PROTEIN 6.9 g/dL (6.4-8.2)
[2021-01-19 18:00] VITALS: BP 146/97
--- NOTE | 2021-01-19 18:45 | NUR ---
SHIFT SUMMARY: PT WAS VERY DROWSY THIS AM, AND HAD DIFFICULTY STAYING AWAKE DURING SEWING DEMONSTRATOR SESSION. VSS, AND PT DID NOT HAVE ANY NEW NOTED DEFICITS. PT ASSISTED BACK TO BED FOR BRIEF REST PERIOD, AND AFTER THIS, HE GOT UP AND PARTICIPATED IN OT, AND WAS UP IN THE CHAIR FOR LUNCH, EATING VERY WELL AND DRINKING WELL. NOTED THAT PT HAD A LARGE INCONT BM FOLLOWING LUNCH AND WAS ASSISTED BACK TO BED FOR A NAP. AFTER RESTING, HE AWAKENED TO EAT ALL OF HIS DINNER AND AGAIN DRANK NECTAR THICK LIQUIDS VERY WELL. PT AMBULATED THIS AFTERNOON IN THE LITEGAIT FOR AN EXTENDED DISTANCE, AND CONTINUES TO MAKE PROGRESS. TRANSFERS HAVE NOTEABLY IMPROVED TO MOD ASSIST OF ONE TOWARD THE STRONG SIDE WITH GAIT BELT AND STAND PIVOT. TIMED TOILETING ATTEMPTED BUT UNABLE TO BE SUCCESSFUL YET WITH THIS. PT STARTED ON FLOMAX TODAY DUE TO POSSIBLE RETENTION, HOWEVER RN UNABLE TO CATCH A PVR. REPORT GIVEN TO ONCOMING SHIFT.
[2021-01-19 19:28] VITALS: BP 121/82
--- NOTE | 2021-01-20 00:28 | NUR ---
PT ALERT WITH APHASIA. RIGHT SIDE FLACCID. INCONT OF URINE IN LARGE AMTS. PT TOOK HS MEDS IN APPLESAUCE WITHOUT DIFFICULTY. PT DENIES PAIN OR DISCOMFORT. BED ALARM ON FOR SAFETY. PT APPEARS TO BE SLEEPING ON HOURLY ROUNDS.
--- NOTE | 2021-01-20 04:03 | NUR ---
PT MOANING AND RESTLESS. INCONT LARGE AMT DARK YELLOW URINE. BLADDER SCAN 197. PT NODS HEAD WHEN ASKED IF HE FEELS BETTER. NO FURTHER MOANING OR RESTLESSNESS.
[2021-01-20 08:00] VITALS: BP 114/76
--- NOTE | 2021-01-20 17:45 | NUR ---
Patient care assumed at 0700, assessment completed lungs clear, active bowel sound, vss, medication given as ordered with apple source, fall precaution in place, patient ate meal with little assistance, he is a one assist on his strong side, he paticipated in OT and PT.
[2021-01-20 20:31] VITALS: BP 154/94
--- NOTE | 2021-01-20 23:05 | NUR ---
PT ALERT WITH APHASIA. INCONT OF URINE IN LARGE AMTS. CONTINUES TO HAVE EPISODES OF RESTLESSNESS AND MOANING BEFORE INCONT. PT TOOK HS MEDS IN APPLESAUCE WITHOUT DIFFICULTY. RIGHT SIDE FLACCID. BED ALARM ON FOR SAFETY. PT APPEARS TO BE SLEEPING ON HOURLY ROUNDS. BOTTOM LIP SWOLLEN.
[2021-01-21 07:30] VITALS: BP 127/89
--- NOTE | 2021-01-21 09:15 | NUR ---
PT SAT UP IN CHAIR THIS AM WITH X1 ASSIST. PT STILL FLACCID TO RT ARM AND WEAKNESS RT LEG. PT LUNGS CLEAR. PT LIP ON RT SIDE IS SWOLLEN AND RT CHEEK. PT TOLERATING THICKENED LIQUIDS WITHOUT COUGH. PT WAS INCON. OF URINE THIS AM. PT STILL NODES YES OR NO FOR QUESTIONS. PT ABLE TO TURN TO RT SIDE WITH LEFT ARM.
--- NOTE | 2021-01-21 11:54 | NUR ---
DTR AND SISTER HERE TO SEE HIM. THEY FEEL LAST THREE DAYS HE HAS NOT DONE WELL AND THE SISTER IS STILL THINKING IT IS THE EFFEXOR THAT IS CAUSING HIM TO BE SLEEPY. SHE THINKS HE HAS HAD ANOTHER STROKE. SHE WAS AWARE OF THE SWOLLEN LIP AND CHEEK. THE SISTER WOULD LIKE TO HAVE A DR. CALL HER.
--- NOTE | 2021-01-21 14:01 | NUR ---
NOTED THAT PT HAS REDNESS AND SWELLING AT RT SIDE OF JAW, EDEMA TO LOWER LIP, AND WHEN ORAL HYGEINE ATTEMPTED AFTER LUNCH, PT FLINCHED AND WITHDREW FROM ANY TOUCH OR MANIPULATION OF THE AREA. NOTIFIED PT'S RN CHANA, WHO STATED PLAN TO NOTIFY MD.
[2021-01-21 19:25] VITALS: BP 127/89
--- NOTE | 2021-01-22 02:45 | NUR ---
assumed care approx 1900 evening 01/21. pt lying in bed at change of shift sleeping. pt awoke for hs meds with applesauce tolerating well. pt incontinent of large amt urine, assisted with turning and repositioning. pt aphasic. pt appears to be sleeping soundly. bed alarm on and call light in reach. will continue to monitor.
[2021-01-22 07:52] VITALS: BP 148/95
--- NOTE | 2021-01-22 13:29 | NUR ---
RESTING QUIETLY IN BED FOR NAJORITY O9F SHIFT SO FAR THIS AM-DOES NOT APPEAR TO TALK -DID GESTURE TO THI NURSE A FEW TIMES IN ORDER TO MAKE NEEDS KNOWN.TOOK AM MEDICATIONS CRUSHED IN APPLESAUCE-SHAKES HEAD IN NEGATIVE FASHIOIN WHEN ASKED ABOUT PAIN.ATTEMPTERD TO DTART IV FOR ABX ORDERED FOR THIS PM-VASCULAR NURSE CONTACTED
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
[2021-01-22 19:38] VITALS: BP 140/70
--- NOTE | 2021-01-23 01:18 | NUR ---
assumed care approx 1900 evening 01/22. pt lying in bed dozing off and on at change of shift. pt given hs meds with applesauce tolerating well. IV med given as ordered to IV site in left hand. pt incontinent of bowel and bladder requiring change and turn assist. pt appears to be sleeping soundly at present. bed alarm on and call light in reach. will continue to monitor.
[2021-01-23 07:13] VITALS: BP 153/102
[2021-01-23 07:15] VITALS: BP 163/113
--- NOTE | 2021-01-23 08:30 | NUR ---
PT LYING ON RT SIDE THIS AM. PT STILL APHASIC AND DOES MAKE SOUNDS AT TIMES. PT NEEDS SUPERVISION WITH EATING. PT RT SIDE OF LIP IS SWOLLEN AND CHEEK. PT RECIEVING ABX FOR POSS INFECTION. PT INCON. OF URINE AND BOWELS. PT RT SIDE IS FLACCID. PT CAN FEED SELF TO WITH LEFT HAND.
--- NOTE | 2021-01-23 12:33 | NUR ---
PT SITTING OUT IN DINING ROOM TO EAT LUNCH, PT ENCOURAGED TO EAT WITH SILVERWARE, PT ALMOST SLAPPED AWAY AT THERAPY WHEN TELLING HIM TO USE SILVERWARE.
[2021-01-23 12:55] VITALS: BP 97/70
--- NOTE | 2021-01-23 14:46 | NUR ---
[facility] could [facility] l[facility] medicaid pending? Will cont following as needed for dc needs.
[2021-01-23 20:05] VITALS: BP 133/92
--- NOTE | 2021-01-24 00:22 | NUR ---
ASSUMED CARE OF PT ON 01/23/21 AT 1930. PT IS ALERT HAS EXPRESSIVE APHASIA & IS APHASIC. IS STABLE. IS ON ROOM AIR. CONTINUES TO HAVE RIGHT FACE EDEMA. ANTIFUGAL CONTINUED IV. HAS RIGHT SIDED WEAKNESS. IS ABLE TO TURN SELF WITH CUEING. IS INCONTINENT TO B&B. IS UP WITH 1, GB, STAND PIVOT. FALL PRECAUTIONS & HOURLY ROUNDING CONTINUED THIS SHIFT. LABS & VITALS REVIEWED. CALL LIGHT WITHIN REACH.
[2021-01-24 07:35] VITALS: BP 150/105
--- NOTE | 2021-01-24 09:03 | NUR ---
PT LYING IN BED AND RESTING THIS AM. PT DIDN'T WANT TO EAT VERY MUCH BREAKFAST. PT TOOK MEDS WITH APPLESAUCE. PT RT SIDE OF FACE SWELLING IS BETTER. INVENTORY MANAGER TO TOUCH WHEN WHIPING MOUTH. PT DIDN'T LIKE THE NYSTATIN LIQUID.
--- NOTE | 2021-01-24 13:13 | NUR ---
Team meeting, recommendation: incont of b and b, did use toilet today. Needs assist with socks and shoes. part mod for sit to stand. light gait today. OT is cont. to taped off and on right shoulder. puree solids and nectar liquid. sever memory cognitive deficits. Anticipated dc 02/03 to ltc.
--- NOTE | 2021-01-24 17:40 | NUR ---
PT WAS INCON. OF URINE AND CHANGED. BARRIER CREAM APPLIED TO BUTTOCKS FOR PINK AREA AROUND ANAL AREA. PT ABLE TO FEED SELF DINNER. PT REFUSED URINAL.
[2021-01-24 19:13] VITALS: BP 143/66
--- NOTE | 2021-01-24 22:30 | NUR ---
Assumed care on 01/24/21 @ 1900, in bed gives yes no headshakes to answer questions, but is non verbal. HRRR, Lungs CTA bilat ABD n x4Q Metronazole IV started @ 2200, IV site is C/D/I with no redness or induration. Able to express needs and wants. Bed in low position and locked. Bed alarm set, call light within reach. Will continue to monitor for safety and comfort as per unit protocol.
[2021-01-25 06:05] LABS: HEMATOCRIT 35.3 % (42.0-52.0); HEMOGLOBIN 12.3 gm/dL (14.0-18.0); MCH 31.5 pg (26.0-34.0); MCHC 34.9 g/dL (28.0-37.0); MCV 90.3 fL (80.0-100.0); PLATELET COUNT 416 thou/uL (150-400); RBC 3.91 mil/uL (4.50-6.00); RDW 13.4 % (10.5-14.5); WBC 6.8 thou/uL (4.0-11.0)
[2021-01-25 06:23] LABS: CALCIUM 8.6 mg/dL (8.5-10.1); CREATININE 0.8 mg/dL (0.7-1.3); POTASSIUM 4.1 mmol/L (3.5-5.1)
[2021-01-25 07:15] VITALS: BP 142/96
[2021-01-25 11:09] LABS: ABSOLUTE NEUTROPHILS 3.8 thou/uL (1.4-8.2); METAMYELOCYTES 1 %
[2021-01-25 11:10] LABS: ANISOCYTOSIS 1+
--- NOTE | 2021-01-25 14:16 | NUR ---
Jayjay spoke with his sister Luisa via phone call. tried to education and pass on information from team meeting yesterday and Luisa kept interrupting with I wish we had more time, can't care for him, he must be able to do more for himself per sister Luisa. Cm asked if could please pass on all information so she would better understand what team is recommendation for safe dcp. Education on ltc, not rehab, and [facility] that on case by case can accept Medicaid pending ltc. Luisa request to talk with [facility] liaison, and medical question for MD. jayjay passed on information to cat with [facility] and . Luisa said thank you for all the help. Will cont. following as needed for dc.
[2021-01-25 17:26] VITALS: BP 132/92
[2021-01-25 19:48] VITALS: BP 148/97
--- NOTE | 2021-01-25 22:06 | NUR ---
ASSUMED CARE OF PT AT 1920. PT IS ALERT, APHASIC, & DYSPHASIC, BUT IS ABLE TO ANSWER YES & NO QUESTIONS. DENIES PAIN. IS STABLE. PT REFUSES TO DRINK FLUIDS. ENCOURAGED & EDUCATED PT. IS UP WITH, GB, STAND PIVOT. HAS RIGHT SIDED FLACIDITY IN RUE & WEAKNESS ON RLE. IS ABLE TO REPOSITION SELF IN BED. FALL PRECAUTIONS & HOURLY ROUNDING CONTINUED THIS SHIFT. LABS & VITALS REVIEWED. CALL LIGHT WITHIN REACH. STATE PAPERS AT PT BEDSIDE FOR GUARDIANSHIP. FAMILY TO NOTIFIED. WILL CONTINUE TO MONITOR.
[2021-01-26 08:00] VITALS: BP 122/89
--- NOTE | 2021-01-26 09:41 | NUR ---
Medicaid pending moe from [employer] sent to [facility] liaison for facility administration/billing to review. Will cont following as needed for dc needs.
--- NOTE | 2021-01-26 11:35 | NUR ---
Per message from cat with [facility], [facility] is able to accept LTC pending medicaid moe, anticipated dc on 02/03/21. Cm notified his sister sujatha and 5n team. Will cont following as needed for dc needs.
--- NOTE | 2021-01-26 13:57 | NUR ---
sujatha, sister called jayjay, had more medical question. she stated just been to social ser office and they might needs some information from hospital. Jayjay passed on information to md and asphalt engineer's. Sasha with [facility] office [phone] called and will be faxing form for md and possible speech to fill out per sasha. will cont following as needed for dc needs.
[2021-01-26 18:00] VITALS: BP 127/82
[2021-01-26 20:00] VITALS: BP 130/87
--- NOTE | 2021-01-27 02:55 | NUR ---
PATIENT IS ALERT, NONE VERBAL DUE TO STROKE. HE IS INCONTINENT OF BOWEL AND BLADDER. HE C/O DISCOMFORT AROUND HIS CHEST AREA AND RAPID RESPONSE TEAM ACTIVATED AND ORDER FOR KUB, TROPONION START IN PLACE. PATIENT WAS GIVEN TYLENOL WITH SOME GOOD EFFECT. HE IS CALM RESTING IN BED AT THIS TIME. BS ACTIVE X4 QUADS. LUNGS ARE CLEAR, ABD IS SOFT MILDLY TENDER. CONTINUE CARE AND MONITOR.
[2021-01-27 08:00] VITALS: BP 119/85
--- NOTE | 2021-01-27 09:52 | NUR ---
social sec paperwork completed, faxed back to sasha with social sec office. Cont. discharge plan as needed.
--- NOTE | 2021-01-27 12:03 | EKG ---
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 : 1955 Requested By: Laura Martinez Order Number: [id number] MD: Cristino Canales Measurements Intervals [place] Rate: 97 P: 59 MN: 129 QRS: 42 QRSD: 82 T: 34 QT: 349 QTc: 444 Interpretive Statements Sinus rhythm Abnormal R-wave progression, early transition Compared to ECG 12/22/2020 12:52:17 Sinus tachycardia no longer present Electronically Signed On 01-27-2021 12:03:38 CDT by Cristino Canales [email or web address] <ELECTRONICALLY SIGNED> By: Cristino Canales MD, [facility] 01/27/21 1203 0849 0849 Cristino Canales MD, FACC /EPI
--- NOTE | 2021-01-27 13:28 | NUR ---
ASSUMED CARE AT 0700. PATIENT IS ALERT AND AWAKE. PATIENT HAS EXPRESSIVE APHAGIA. PATIENT HAS FLACCID RIGHT SIDE. PATIENT IS UP IN CHAIR WITH SPEECH THERAPY FOR BREAKFAST. PATIENT IS INCONTINENT OF B & B. UP WITH ONE WITH GAIT BELT. PATIENT HAS S.L. IN HIS LEFT FORARM THAT IS PATENT AND INTACT,WITHOUT REDNESS OR SWELLING. FALL AND SAFETY PROTOCOLS IN PLACE. NO C/O PAIN AT THIS TIME. CONTINUES TO PROGRESS SLOWLY TOWARDS D/C GOALS. WILL CONTINUE TO MONITER.
--- NOTE | 2021-01-27 13:53 | PLAN ---
[facility] [place] [address] REHAB UNIT PLAN OF CARE Name: WM HOOD Room #: 512-P ADM IN M.R.#: [id number] Admission: 01/11/21 Attend Phys: Prince Unger MD Discharge: Date of : 59 Report #: [id number] THIS REPORT FOR: cc: FAM - No family physician/PCP FAM - No family physician/PCP Prince Unger MD ~ DATE OF SERVICE: 01/14/2021 PROGRESS NOTE AND OVERALL PLAN OF CARE HISTORY OF PRESENT ILLNESS: The patient was seen yesterday in followup. He was sleeping, but would arouse. His right side is flaccid. No focal calf swelling. He responds better to functional activities rather than range of motion activities. He has been involved in therapies with bed to wheelchair transfers at a mod assist level. He is unable to ambulate. In occupational therapy, lower body dressing is dependent with upper body dressing moderate assistance. Speech therapy, his cognition and memory were not assessed, although they were assessed prior to his admission to rehab and noted to be severely impaired. He does have severe comprehension as well as severe expression. ASSESSMENT: 1. Large left middle cerebral artery infarct. 2. Dense right hemiplegia. 3. Severe aphasia. 4. Dysphagia, on mechanical soft, nectar thickened liquids. 5. Occluded left internal carotid artery. 6. Recent COVID-19 pneumonia. 7. History of methamphetamine abuse and tobacco abuse. 8. Hypertension. 9. Protein calorie malnutrition. PLAN: The overall plan of care is based on the pre-admit screen and information garnered from therapy assessments. 1. Estimated length of stay is probably fairly long 14-21 days. 2. Medical prognosis is reasonably good, although he has had a large stroke and I am uncertain how much overall progress he will make. We will need to see how he does. 3. Anticipated interventions includes the interdisciplinary acute inpatient rehabilitation program. 4. Anticipated functional outcomes would be for him to become maximally independent with basic mobility, transfers, communication and swallowing issues. At this point, the best hope would be for him to be at a wheelchair level and hopefully be able to do some basic mobility and to be able to communicate better. 5. Discharge destination would be to the home setting if possible. He had a roommate before and he does have a very involved sister. [address] [address] REHAB UNIT PLAN OF CARE Name: ERWINWM Greenberg Room #: 512-P [facility] IN ..#: [id number] Admission: 01/11/21 Attend Phys: Prince Unger MD Discharge: Date of : 59 Report #: [id number] 6. Expected therapy by discipline includes PT, OT and speech 1 hour per day each 5 days a week throughout the duration of the acute inpatient rehabilitation stay. ADDENDUM: The patient's prognosis for significant practical improvement within a reasonable period of time appears good. Given the patient's complex medical condition and risk of further medical complication, rehabilitation services could not be safely provided at a lower level of care such as a retirement facility. The patient did miss some therapies on 01/12/2021 due to refusal and some agitation and frustration. Paperwork was filled out as far as guardianship issues. Both Dr. Wiseman and I have given support in this regard that the patient is not competent and lacks decision making capacity as a result of cognitive deficits from stroke. <ELECTRONICALLY SIGNED> By: Prince Unger MD 01/27/21 1353 0833 1157 Prince Unger MD /nt
--- NOTE | 2021-01-27 16:11 | EKG ---
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 : 1955 Requested By: Prince Unger Order Number: [id number] : Cristino Canales Measurements Intervals [place] Rate: 97 P: 61 AL: 125 QRS: 56 QRSD: 82 T: 53 QT: 340 QTc: 432 Interpretive Statements Sinus rhythm Abnormal R-wave progression, early transition Compared to ECG 12/22/2020 12:52:17 Sinus tachycardia no longer present Electronically Signed On 01-27-2021 16:11:03 CDT by Cristino Canales [email or web address] <ELECTRONICALLY SIGNED> By: Cristino Canales MD, [facility] 01/27/21 1611 0020 0020 Cristino Canales MD, FACC /EPI
[2021-01-27 19:16] VITALS: BP 116/77
--- NOTE | 2021-01-28 02:33 | NUR ---
assumed care approx 1900 evening 01/27. pt lying in bed with head of bed elevated at change of shift. pt quiet and with aphasia. pt nodded he that he was ok and did not need anything at change of shift and hs. pt appears to be sleeping soundly. bed alarm on and call light in reach. will continue to monitor.
[2021-01-28 07:58] VITALS: BP 155/104
--- NOTE | 2021-01-28 09:31 | NUR ---
ASSUMED CARE AT 0700. PATIENT HAS EXPRESSIVE APHAGIA. PATIENT IS ALERT AND AWAKE. PATIENT HAS RIGHT SIDED WEAKNESS. LUNGS ARE CLEAR AND DEMINISHED. ABD IS SOFT WITH BSX4. PATIENT IS INCONTINENT OF B & B. PATIENT IS UP IN CHAIR FOR MEALS. ST HERE TO SEE PATIENT. FALL AND SAFETY PROTOCOLS IN PLACE. NO SIGN OF PAIN AT THIS TIME. CONTINUES TO PROGESS SLOWLY TOWARDS D/C GOALS. WILL CONTINUE TO MONITER.
[2021-01-28 20:00] VITALS: BP 114/76
--- NOTE | 2021-01-29 02:06 | NUR ---
assumed care approx 1900 evening 01/28. pt lying in bed resting and dozing off and on. pt denied complaints. pt with no hs meds. pt appears to be resting comfortably. assist with turning and repositioning. bed alarm on and call light in reach. will continue to monitor.
[2021-01-29 07:15] VITALS: BP 134/93
--- NOTE | 2021-01-29 18:17 | NUR ---
ASSUMED CARE OF PATIENT AT SHIFT CHANGE. ASSESSMENT CHARTED. MEDICATIONS ADMINISTERED PER EMAR. VSS. PATIENT HAS EXPRESSIVE APASIA BUT HAS BEEN ABLE TO COMMUNICATE NEEDS THROUGHOUT SHIFT. PATIENT WAS OFFERED REPOSITIONING EVERY 2 HRS. PATIENT STILL TOLERATING PUREED FOODS WELL WITH NO ISSUES; ONLY A SET UP FOR MEALS. WORKED WITH PT AND GOT UP TO CHAIR. PATIENT DENIED PAIN WHEN ASKED AND HAD NO OTHER ISSUES THIS SHIFT. FALL PRECAUTIONS IN PLACE. WILL ENDORSE TO NIGHT RN
[2021-01-29 22:41] VITALS: BP 116/71
--- NOTE | 2021-01-29 23:52 | NUR ---
PT ASSESSMENT COMPLETED AND VSS. MEDS GIVEN ORDERED AND WELL TOLERATED. FALL PRECAUTIONS IN PLACE. INC OF URINE AND BM. LILLIAN CARE PROVIDED. ASST WITH REPOSITON. PT ENJOYED NECTOR THICK APPLE JUICE. SLEEPING WELL AT THIS TIME. WILL CONTINUE TO MONITOR FREQUENTLY.
[2021-01-30 07:15] VITALS: BP 138/95
--- NOTE | 2021-01-30 09:28 | NUR ---
PT AWAKE IN BED. PT SHOOK HEAD YES WHEN ASKED IF HE ATE BREAKFAST. PT ABLE TO MAKE SOUNDS WITHOUT WORDS. PT ASKED IF HE WOULD LIKE TO TAKE MEDS WITH APPLESAUCE OR PUDDING. PT GRABBED THE APPLESAUCE. PT SEEMS TO EAT WITHOUT USING UTENSILS. PT INCON. OF URINE AND DOES NOT TELL STAFF PRIOR TO VOIDING. PT KNOWS WHEN HE VOIDS. PT TOLERATING NECTOR THICK LIQUIDS.
[2021-01-30 19:33] VITALS: BP 111/70
--- NOTE | 2021-01-30 22:46 | NUR ---
PT ASSESSMENT COMPLETED AND VSS. MEDS GIVEN ORDERED AND WELL TOLERATED. FALL PRECAUTIONS IN PLACE. INC OF URINE. ASST WITH REPOSITION FOR COMFORT. ZGUARD APPLIED TO BOTTOM. PT SLEEPING WELL. WILL CONTINUE TO MONITOR FREQUENTLY.
[2021-01-31 07:15] VITALS: BP 135/89
--- NOTE | 2021-01-31 10:32 | NUR ---
ASSUMED CARE AT 0700. PATIENT IS ALERT AND AWAKE. PATIENT HAS RIGHT SIDED WEAKNESS, AND EXPRESSIVE APHAGIA. LUNGS ARE CLEAR AND DEIMINISHED. ABD IS SOFT WITH BSX4. PATIENT IS INCONTINENT OF B&B. UP IN THE CHAIR FOR BREAKFAST WITH S.T. FALL AND SAFETY PROTOCOLS IN PLACE. DENIES PAIN. CONTINUES TO PROGRESS TOWARDS D/C GOALS. S.L IN LEFT WRIST D/C'D R/T NON-USE. WILL CONTINUE TO MONITER.
--- NOTE | 2021-01-31 13:26 | NUR ---
Team meeting, recommendation: difficulty with verbal communication. transfer part moderate. need allot of clueing, diet nectar thick liquids, mech soft. will need to follow with for dental care. Will need lap board for his wheelchair in ltc at [facility]. DC on 02/03
[2021-01-31 19:30] VITALS: BP 132/69
--- NOTE | 2021-02-01 02:26 | NUR ---
assumed care approx 1900 evening 01/31. pt lying in bed with head of bed elevated at change of shift. pt incontinent of urine assisted with changing of pad. pt with no hs meds. pt appears to be sleeping soundly. bed alarm on and call light in reach. will continue to monitor.
[2021-02-01 07:49] VITALS: BP 151/101
[2021-02-01 07:59] LABS: HEMOGLOBIN 13.2 gm/dL (14.0-18.0); MCH 31.7 pg (26.0-34.0); MCHC 34.8 g/dL (28.0-37.0); MCV 91.2 fL (80.0-100.0); RBC 4.16 mil/uL (4.50-6.00); RDW 13.6 % (10.5-14.5); WBC 6.9 thou/uL (4.0-11.0)
--- NOTE | 2021-02-01 08:02 | NUR ---
ASSUMED CARE AT 0700. PATIENT IS ALERT AND AWAKE. PATIENT HAS RIGHT SIDED WEAKNESS. PATIENT HAS EXPRESSIVE APHAGIA. MOUTH CARE DONE. LUNGS ARE CLEAR AND DEMINISHED. ABD IS SOFT WITH BSX4. PATIENT IS INCONTINENT OF B & B. UP TO W/C WITH STAND,PIVOT, TURN, SIT. FALL AND SAFETY PROTOCOLS IN PLACE. NO C/O PAIN. CONTINUES TO PROGRESS TOWARDS D/C GOALS. PLAN D/C LATER THIS WEEK.
[2021-02-01 08:21] LABS: CALCIUM 8.6 mg/dL (8.5-10.1); POTASSIUM 3.6 mmol/L (3.5-5.1)
--- NOTE | 2021-02-01 11:05 | NUR ---
PATIENT ABLE TO MOVE HIS RIGHT LEG. SPICE FUMIGATOR HERE TO SEE PATIENT. WILL CONTINUE TO MONITER.
--- NOTE | 2021-02-01 14:53 | NUR ---
All parties anticipating dc to ltc at [facility] on Saturday02/03/21. They have arranged for an 1100 w/c van transport. Clinical updates and 124C faxed today to admissions. They will f/u with pt's sister regarding private pay cost of therapy services once he is admitted. Message left for his sister Luisa to call cm to confirm dc arrangements for Saturday. Chart copy in progress.
[2021-02-01 18:58] VITALS: BP 116/83
--- NOTE | 2021-02-01 23:19 | NUR ---
PT ASSESSMENT COMPLETED AND VSS. MEDS GIVEN ORDERED AND WELL TOLERATED. FALL PRECAUTIONS IN PLACE. SUPPORTIVE DAUGHTER AT BEDSIDE. PT WAS SHOWING STAFF AND FAMILY HOW HE WAS MOVING HIS RIGHT LEG. HE WAS VERY EXCITED ABOUT THIS. ENCOURAGED PT TO CONTINUE USING HIS WORDS. PT IS STILL MIXING UP YES AND NO. ASST WITH REPOSITION FOR COMFORT. ZGUARD APPLIED TO RED AREA ON BOTTOM. INC OF SMALL BM AT HS. SOFT AND BROWN. SLEEPING WELL AT THIS TIME. WILL CONTINUE TO MONITOR FREQUENTLY.
--- NOTE | 2021-02-02 07:33 | NUR ---
ASSUMED CARE AT 0700. PATIENT IS ALERT AND AWAKE. PATIENT REMAINS APHASIC WITH EXPRESSIVE APHAGIA. PATIENT HAS RIGHT UPPER EXTREMITY WEAKNESS. LUNGS ARE CLEAR AND DEMINISHED. ABD IS SOFT WITH BSX4. PATIENT REMAINS INCONTINENT OF B & B. Z-GUARD TO BOTTOM. PATIENT IS UP WITH THERAPY TO W/C, STAND, PIVOT, SIT. FALL AND SAFETY PROTOCOLS IN PLACE. PATIENT REMAINS ON NECTAR THICK LIQUIDS. PLAN D/C ON SATURDAY TO [facility]. WILL CONTINUE TO MONITER.
[2021-02-02 08:00] VITALS: BP 145/103
--- NOTE | 2021-02-02 11:50 | NUR ---
phone call from leanna sister sujatha stated don't want him going to [facility], called lynn in [facility]. referral sent and cm passed on information to [employer].
[2021-02-02 20:00] VITALS: BP 118/79
--- NOTE | 2021-02-03 01:47 | NUR ---
assumed care approx 1900 evening 02/02. pt visiting with family in room at change of shift. pt appropriate and cooperative. pt with no hs meds. pt appers to be sleeping soundly. bed alarm on and call light in reach. will continue to monitor.
[2021-02-03 08:00] VITALS: BP 148/104
[2021-02-03] MEDS ORDERED: LIPITOR 20 MG T20 M1 PO (08:46)
[2021-02-03] MEDS ORDERED: VENTOLIN HFA 1818 GM INH (08:46)
[2021-02-03] MEDS ORDERED: VITAMIN D325 MC2 PO (08:46)
[2021-02-03] MEDS ORDERED: FOLIC ACID1 MG PO (08:46)
[2021-02-03] MEDS ORDERED: VITAMIN B-1100 M2 PO (08:46)
[2021-02-03] MEDS ORDERED: ZINC SULFATE50 MG PO (08:46)
[2021-02-03] MEDS ORDERED: ELIQUIS5 MG PO ×2 (08:46→08:48)
[2021-02-03] MEDS ORDERED: EFFEXOR XR37.5 MG PO (08:46)
[2021-02-03] MEDS ORDERED: ACEROLA C500 MG PO (08:46)
[2021-02-03] MEDS ORDERED: FLOMAX0.4 MG PO (08:46)
[2021-02-03] MEDS ORDERED: PROTONIX 20 MG20 M1 PO (08:46)
[2021-02-03] MEDS ORDERED: ASPIRIN325 PO ×2 (08:46→08:48)
[2021-02-03] MEDS ORDERED: BISACODYL10 MG RECTAL (08:48)
[2021-02-03 08:54] VITALS: BP 148/104
--- NOTE | 2021-02-03 09:00 | NUR ---
Jayjay, revisited with leanna at bedside, he resting in bed eyes open and closed to calling of his name, cont. to reeducate on dcp today to skilled. faxed dc orders to [facility], and liaison cat. [id number] completed and sent in the chart copy. wheel chair van set up by facility form [id number].
[2021-02-03] MEDS ORDERED: LACTULOSE20 GM/30 M PO ×2 (09:20→10:22)
--- NOTE | 2021-02-03 10:20 | NUR ---
PATIENT IS FOR DISCHARGE TO [facility] TODAY. NOTED NEW ORDERS FOR LACTULOSE, AND MESSAGE SENT TO [employer] ADMINISTRATIVE ASSISTANT TO CLARIFY START DATE. TO BETTER FACILITATE A SMOOTH TRANSFER TO THE FACILITY, THIS WILL START AFTER PT ARRIVES TO THE FACILITY AND GETS SETTLED IN. PT IS CURRENTLY UP WITH THERAPISTS AND PARTICIPATING IN PT. NO COMPLAINTS NOTED, AND SISTER IS AT BEDSIDE. AWAITING WORD ON TIMING OF DISCHARGE. PT IS AWARE THAT HE IS LEAVING TODAY, AND ALTHOUGH HIS AFFECT REMAINS FLAT, HE IS PLEASANT AND COOPERATIVE.
--- NOTE | 2021-02-03 12:30 | NUR ---
PT'S SISTER AND DAUGHTER WERE AT BEDSIDE MUCH OF THIS AM, AND VERY ATTENTIVE. PT UP TO THERAPIES, AND THEN ASSISTED HOM[employer] MIN ASSIST TO WC TO TRANSPORT TO FACILITY. PT DID NOT WHEEL HIMSELF TO THE CAR AND DID NOT DEMONSTRATE CAR TRANSFER, HE WAS TAKEN THERE BY [facility].
== END 2021-02-03 12:30 | DRG 64 ==
PROVIDERS: Nurse Practitioner; Nurse Practitioner Family; ADMIT Physical Medicine & Rehabilitation; ATTEND Physical Medicine & Rehabilitation
DX: I63.512 Cerebral infarction due to unspecified occlusion or stenosis of left middle cerebral artery (principal); E43 Unspecified severe protein-calorie malnutrition; G81.91 Hemiplegia, unspecified affecting right dominant side; I10 Essential (primary) hypertension; E78.5 Hyperlipidemia, unspecified; R13.10 Dysphagia, unspecified; R47.01 Aphasia; I65.22 Occlusion and stenosis of left carotid artery; F01.50 Vascular dementia, unspecified severity, without behavioral disturbance, psychotic disturbance, mood disturbance, and anxiety; I25.10 Atherosclerotic heart disease of native coronary artery without angina pectoris; R33.9 Retention of urine, unspecified; E03.9 Hypothyroidism, unspecified; F32.9 Major depressive disorder, single episode, unspecified; Z66 Do not resuscitate; E53.8 Deficiency of other specified B group vitamins; Z86.16 Personal history of COVID-19; Z95.5 Presence of coronary angioplasty implant and graft; Z91.19 Patient's noncompliance with other medical treatment and regimen; Z68.22 Body mass index [BMI] 22.0-22.9, adult; Z87.01 Personal history of pneumonia (recurrent)
CPT/HCPCS: 10112